=== PATIENT | male | born 1950 | race Caucasian/White ===

== ENCOUNTER 2017-06-15 07:21 | Day surgery (SDC) | payer OTHER, SELFPAY ==
--- NOTE | 2017-06-14 06:06 | EKG12_ITS ---
Test Reason : PREOP Blood Pressure : / mmHG Vent. Rate : 049 BPM Atrial Rate : 049 BPM P-R Int : 170 ms QRS Dur : 104 ms QT Int : 478 ms P-R-T Axes : 044 088 077 degrees QTc Int : 431 ms Marked sinus bradycardia Abnormal ECG Confirmed by ELISABET AMIN MD ([id number]), editorial clerk JOANA MOORE ([id number]) on 06/15/2017 8:27:39 AM Referred By: Torsten Herrera Confirmed By:ELISABET AMIN MD
[2017-06-15 08:06] VITALS: BP 117/75; PULSE 47; RESP 16; TEMP 36.9; O2SAT 100; BMI 20.3
--- NOTE | 2017-06-15 08:32 | PCM.PN.BLA ---
Progress Note I discussed robotic assisted laparoscopic right, possible bilateral, inguinal hernia repair with mesh with the patient. I discussed the procedure both open and laparoscopic and pros and cons of each. I discussed the risks of the procedure including but not limited to bleeding, infection, injury to bowel, bladder, chronic groin pain. The patient wishes to proceed. I agree with Dr Jose's assessment and physical exam. Torsten Herrera MD
[2017-06-15] MEDS: Cefazolin 2 GM in 0.9% Normal Saline 100 ML IV (09:20)
[2017-06-15] MEDS: Bupivacaine Mpf 0.5% 30 ML VIAL (10:16)
[2017-06-15 10:35] VITALS: BP 117/75; BP 139/81; PULSE 68; RESP 14; TEMP 36.6; O2SAT 95
--- NOTE | 2017-06-15 10:36 | PCM.DC.HER ---
Discharge Diet: Light diet - advance as tolerated Discharge Activity: Return to Normal Activity, May Not Drive - for 2-3 days or while taking narcotic pain meds., May Shower - with the bandage in place 1-2 days after surgery. Lifting Restrictions: Additional Activity Instructions:: Climbing stairs is fine, walking is encouraged. Sitting in bed may be uncomfortable. Sitting up using your lateral muscles (sitting up sideways) is usually more comfortable. Do not drive, work heavy equipment of sign legal documents for 24 hours. If your hernia repair was an ingunial repair, you may have scrotal swelling, an ice pack and/or athletic support can provide more comfort. Pain medications may cause nausea, you should typically eat light foods as you take your pain medications. Pain medications may also cause constipation. If you have difficulty with this, discuss with your doctor. Call your doctor if your incision/area has: Continuous Slow Oozing, Sudden Increased Bleeding, Increased Pain/ Swelling, Increased Redness, Foul Smelling Discharge Call your doctor if you observe: Fever of 101 or Higher Suture Line Care: Avoid Pulling/Pushing, Avoid Pinching/Bending Change Dressing in (Days):: 3 - Leave steri-strips for 1 week. May protect with a guaze bandaid. Cleanse incision/area with: Keep Dressing Clean & Dry Allergies/Adverse Reactions: Allergies No Known Allergies Allergy (Verified 06/11/17 08:51) Medications to take at Discharge Multivitamins,Therapeutic [Multivitamin] 1 tablet PO DAILY 09/12/14 Tamsulosin HCl [Flomax] 0.4 mg PO DAILY 09/12/14 cholecalciferol (vitamin D3) 1,000 unit capsule 1,000 unit PO DAILY 05/31/17 finasteride 5 mg tablet 5 mg PO QDAY 05/31/17 Oxycodone HCl/Acetaminophen [Percocet 5/325] 1 - 2 tab PO Q4H PRN PRN 7 Days #30 tab 06/15/17 The following prescriptions were given: Oxycodone HCl/Acetaminophen [Percocet 5/325] 1 - 2 tab PO Q4H PRN PRN 7 Days #30 tab PRN Reason: Pain Primary Care Physician: Evan Carrillo MD [Primary Care Provider] - Please Follow Up With: Torsten Herrera MD
--- NOTE | 2017-06-15 10:40 | DCINST_ITS ---
Discharge Diet: Light diet - advance as tolerated Discharge Activity: Return to Normal Activity, May Not Drive - for 2-3 days or while taking narcotic pain meds., May Shower - with the bandage in place 1-2 days after surgery. Lifting Restrictions: Additional Activity Instructions:: Climbing stairs is fine, walking is encouraged. Sitting in bed may be uncomfortable. Sitting up using your lateral muscles (sitting up sideways) is usually more comfortable. Do not drive, work heavy equipment of sign legal documents for 24 hours. If your hernia repair was an ingunial repair, you may have scrotal swelling, an ice pack and/or athletic support can provide more comfort. Pain medications may cause nausea, you should typically eat light foods as you take your pain medications. Pain medications may also cause constipation. If you have difficulty with this, discuss with your doctor. Call your doctor if your incision/area has: Continuous Slow Oozing, Sudden Increased Bleeding, Increased Pain/ Swelling, Increased Redness, Foul Smelling Discharge Call your doctor if you observe: Fever of 101 or Higher Suture Line Care: Avoid Pulling/Pushing, Avoid Pinching/Bending Change Dressing in (Days):: 3 - Leave steri-strips for 1 week. May protect with a guaze bandaid. Cleanse incision/area with: Keep Dressing Clean & Dry Allergies/Adverse Reactions: Allergies No Known Allergies Allergy (Verified 06/11/17 08:51) Medications to take at Discharge Multivitamins,Therapeutic [Multivitamin] 1 tablet PO DAILY 09/12/14 Tamsulosin HCl [Flomax] 0.4 mg PO DAILY 09/12/14 cholecalciferol (vitamin D3) 1,000 unit capsule 1,000 unit PO DAILY 05/31/17 finasteride 5 mg tablet 5 mg PO QDAY 05/31/17 Oxycodone HCl/Acetaminophen [Percocet 5/325] 1 - 2 tab PO Q4H PRN PRN 7 Days # 30 tab 06/15/17 The following prescriptions were given: Oxycodone HCl/Acetaminophen [Percocet 5/325] 1 - 2 tab PO Q4H PRN PRN 7 Days # 30 tab PRN Reason: Pain Primary Care Physician: Evan Carrillo MD [Primary Care Provider] - Please Follow Up With: Torsten Herrera MD
--- NOTE | 2017-06-15 10:44 | PCM.OPRPT ---
Problem List (1) Right inguinal hernia Status: Chronic Report of Operation Date of Procedure: 06/15/17 Pre-Operative Diagnosis: Right inguinal hernia Post-Operative Diagnosis: Right inguinal hernia Surgery/Procedure Performed:: Robotic assisted laparoscopic right inguinal hernia repair with mesh Specimen's removed: None Description of Procedure: The patient was brought back to the operating room and general anesthesia was induced. A Delaney catheter was placed and clear urine was returned. The abdomen was prepped and draped in usual sterile fashion. Next an incision was made superior to the umbilicus. The fascia was grasped and elevated and a Veress needle was placed into the abdomen. A drop test was performed and was normal. The abdomen was insufflated to 15 mmHg. Next the Veress needle was removed and the camera port was placed into the abdomen. The camera was placed in the abdomen and the abdomen was inspected. There were no injuries upon entering the patient only had a right-sided inguinal hernia. Next an 8 mm port was placed on each side of the abdominal sidewall under direct visualization. The robot was then docked and the patient was placed in steep Trendelenburg position. Next cautery scissors were used to incise the peritoneum and it was reflected back until the hernia sac was reached. The hernia sac was dissected free circumferentially. Once the hernia sac was reflected free and this was reflected back onto the psoas a piece of pro-process control specialist mesh was placed into the abdomen and over the right inguinal region. This was unfolded and self fixated. Next the peritoneum was reapproximated with a running 3-0V lock suture. There was a small hole in the peritoneum which was closed with a [id number] 3-0 Vicryl suture. At the end of the procedure the peritoneum was completely covering the mesh. The instruments were removed and the robot was undocked. The ports were removed under direct visualization. The skin incisions were anesthetized with Marcaine and closed with interrupted 4-0 Monocryl suture, Steri-Strips, and bandages. The patient tolerated the procedure well and the Delaney was removed at the end of the case. The patient tolerated the procedure well. Grafts/Implants Used: Pro-process control specialist mesh - Admit VTE Documentation VTE Mechan Device Prophylaxis: SCD's
[2017-06-15 10:45] VITALS: BP 113/79; BP 117/75; PULSE 53; RESP 16; O2SAT 100
--- NOTE | 2017-06-15 10:49 | OP.PCM_ITS ---
Problem List (1) Right inguinal hernia Status: Chronic Report of Operation Date of Procedure: 06/15/17 Pre-Operative Diagnosis: Right inguinal hernia Post-Operative Diagnosis: Right inguinal hernia Surgery/Procedure Performed:: Robotic assisted laparoscopic right inguinal hernia repair with mesh Specimen's removed: None Description of Procedure: The patient was brought back to the operating room and general anesthesia was induced. A Delaney catheter was placed and clear urine was returned. The abdomen was prepped and draped in usual sterile fashion. Next an incision was made superior to the umbilicus. The fascia was grasped and elevated and a Veress needle was placed into the abdomen. A drop test was performed and was normal. The abdomen was insufflated to 15 mmHg. Next the Veress needle was removed and the camera port was placed into the abdomen. The camera was placed in the abdomen and the abdomen was inspected. There were no injuries upon entering the patient only had a right-sided inguinal hernia. Next an 8 mm port was placed on each side of the abdominal sidewall under direct visualization. The robot was then docked and the patient was placed in steep Trendelenburg position. Next cautery scissors were used to incise the peritoneum and it was reflected back until the hernia sac was reached. The hernia sac was dissected free circumferentially. Once the hernia sac was reflected free and this was reflected back onto the psoas a piece of pro-supervisor pipeline maintenance mesh was placed into the abdomen and over the right inguinal region. This was unfolded and self fixated. Next the peritoneum was reapproximated with a running 3-0V lock suture. There was a small hole in the peritoneum which was closed with a figure -of-eight 3-0 Vicryl suture. At the end of the procedure the peritoneum was completely covering the mesh. The instruments were removed and the robot was undocked. The ports were removed under direct visualization. The skin incisions were anesthetized with Marcaine and closed with interrupted 4-0 Monocryl suture, Steri-Strips, and bandages. The patient tolerated the procedure well and the Delaney was removed at the end of the case. The patient tolerated the procedure well. Grafts/Implants Used: Pro-supervisor pipeline maintenance mesh - Admit VTE Documentation VTE Mechan Device Prophylaxis: SCD's
[2017-06-15 11:00] VITALS: BP 117/75; BP 120/74; PULSE 53; RESP 16; TEMP 36.1; O2SAT 100
[2017-06-15 13:20] VITALS: BP 117/75; BP 120/74; PULSE 53; RESP 18; TEMP 36.3; O2SAT 100
[2017-06-15 13:58] VITALS: BP 117/75
== END 2017-06-15 14:03 | disposition home or self-care (01) ==
LOC: SDC 07:21 → AC 07:24
PROVIDERS: Family Provider Family Medicine; PCP Family Medicine; Visit Provider Surgery
PROC: (CPT 49650; principal; 2017-06-15 08:40)
DX: K40.90 Unilateral inguinal hernia, without obstruction or gangrene, not specified as recurrent (principal); N40.0 Benign prostatic hyperplasia without lower urinary tract symptoms; Z79.899 Other long term (current) drug therapy
CPT/HCPCS: 49650; 93005; J7120; J2405; J3490

== ENCOUNTER → 2018-09-07 | Outpatient (CLI) | payer OTHER, MEDICARE, SELFPAY ==
[2017-06-21 14:19] VITALS: BMI 20.3
[2018-09-07 10:24] LABS: Anion Gap 5 (5-15); BUN 14 mg/dL (7-18); BUN/Creat Ratio 15.4 RATIO (10-20); Calcium,Total 8.4 mg/dL (8.5-10.1); Chloride 106 mmol/L (98-107); Cholesterol 185 mg/dL (200); Creatinine, Serum 0.91 mg/dL (0.70-1.30); EST Glomerular Filtration Rate 89 mL/min (>60); Est Glom Filt Rate - Afr Amer 107 mL/min (>60); Glucose 82 mg/dL (74-106); High Density Lipoprotein 81 mg/dL; PSA,Total - Annual Screen 0.47 ng/mL (0.00-4.00); Potassium 3.9 mmol/L (3.5-5.1); Sodium Level 142 mmol/L (136-145); Triglycerides 56 mg/dL; Very Low Density Lipoprotein 11 mg/dL (5-40)
== END | disposition home or self-care (01) ==
PROVIDERS: Family Provider Family Medicine; PCP Family Medicine; Referring Provider Family Medicine; Visit Provider Family Medicine
DX: N40.0 Benign prostatic hyperplasia without lower urinary tract symptoms (principal); Z13.220 Encounter for screening for lipoid disorders; Z12.5 Encounter for screening for malignant neoplasm of prostate
CPT/HCPCS: 36415; 80048; 80061; 84153; G0103

== ENCOUNTER → 2019-05-08 09:46 | Outpatient (CLI) | payer MEDICARE, SELFPAY ==
[2017-06-21 14:19] VITALS: BMI 20.3
--- NOTE | 2019-05-08 09:50 | RAD_ITS ---
Procedure: Fluoroscopically guided, dedicated esophagram with frontal and lateral cine views of the pharynx/larynx. INDICATIONS: Solid foods get stuck in the throat and has to cough to get them out for about 6 months. No history of carcinoma. TECHNIQUE: The patient easily and readily swallowed effervescent crystals, a 12 mm barium pill and various density barium contrast under fluoroscopic real-time evaluation. Multiple spot images were obtained during the course of the real-time exam. FINDINGS: The esophageal motility appears normal. There is no esophageal stricture, web or diverticulum. There is no intrinsic or extrinsic esophageal mass or mass effect. The mucosal pattern appears unremarkable. There is a tiny hiatal hernia. No free reflux was observed during the course of the real-time exam. The barium pill transited the esophagus rapidly without delay or hang up. There is symmetric flow of the contrast bolus through the larynx/hypopharynx region. There is vallecula and bilateral piriform sinus contrast pooling with rapid clearing. There is no vestibular penetration or elisa aspiration. There is a small posterior indentation on the posterior cervical esophagus at the C6-C7 level due to osteophyte formation. No intrinsic esophageal mass or mass effect. RAD/Esophagus Only IMPRESSION: Small hiatal hernia. No free reflux. Unremarkable transit/passage of the barium pill. Vallecula and bilateral piriform sinus contrast pooling with rapid clearing. No vestibular penetration or elisa aspiration. Minimal extrinsic mass effect on the posterior esophagus at the C6-C7 level due to vertebral body osteophyte formation. Otherwise, no fluoroscopically evident pathology. Fluoroscopy time less than 1 minute. Electronically Signed: Rahat Greenberg MD at 11:02 EST , Service support ,
== END ==
PROVIDERS: Family Provider Family Medicine; PCP Family Medicine; Referring Provider Family Medicine; Visit Provider Family Medicine
DX: R13.10 Dysphagia, unspecified (principal)
CPT/HCPCS: 74220

== ENCOUNTER → 2019-08-07 12:50 | Outpatient (CLI) | payer MEDICARE, SELFPAY ==
[2017-06-21 14:19] VITALS: BMI 20.3
--- NOTE | 2019-08-07 13:00 | SP.MBSS_ITS ---
PRIMARY / SECONDARY DIAGNOSIS: dysphagia (R13.10) REFERRING PHYSICIAN: Dr. Evan Hitchcock MD CURRENT DIET: regular textures, thin liquids DENTITION: WFL MENTAL STATUS: WNL RESPIRATORY STATUS: O2 via room air REASON FOR REFERRAL: The Patient is a 69 year old male referred for a modified barium swallow (MBS) study to objectively assess the Patients oropharyngeal swallow function under fluoroscopy secondary to reported intermittent globus sensation / feelings of bolus dysmotility with occasional though seldom retrograde flow to the oral cavity without acidic qualities. MEDICAL HISTORY: Right inguinal hernia status post laproscopic robotic assisted right inguinal hernia repair with mesh, childhood asthma, benign prostatic hyperplasia, PREVIOUS MODIFIED BARIUM SWALLOW STUDY: None ADDITIONAL OBJECTIVE ASSESSMENT RESULTS: 05/08/2019 barium swallow study revealed a small hiatal hernia; no free reflux; unremarkable transit / passage of the barium pill; vallecula and bilateral piriform sinus contrast pooling with rapid clearing; no vestibular penetration or elisa aspiration; minimal extrinsic mass effect on the posterior esophagus at the C6-C7 level due to vertebral body osteophyte formation; otherwise, no fluoroscopically evident pathology. ASSESSMENT PARAMETERS: The Patient participated in a Modified Barium Swallow (MBS) study on 08/07/2019. This study was recorded in the lateral view and images were sent to PACs for storage. Scoring was completed through each trial using the 8- point Penetration-Aspiration Scale (PAS), and summarized via the Modified Barium Swallow Impairment Profile (MBSImP) and the Bolus Residue Scale (BRS), with severity scoring through the Dysphagia Severity Rating Scale (DSRS) and the Swallowing Performance Scale (SPS), and recommended diet textures through the International Dysphagia Diet Standardisation Initiative (IDDSI) RESULTS OF THE EVALUATION: The Patient presents with mastication and deglutition abilities found to be grossly within functional limits (DSRS: 1; SPS: 2) OBJECTIVE ASSESSMENT OF SWALLOW FUNCTION (QUANTITATIVE ? PER TRIAL): PENETRATION / ASPIRATION SCALE (BARNES): 1 = does not enter airway 2 = enters airway/above vocal folds/ejected 3 = enters airway/above vocal folds/not ejected 4 = enters airway/contacts vocal folds/ejected 5 = enters airway/contacts vocal folds/not ejected 6 = enters airway/below vocal folds/ejected 7 = enters airway/below vocal folds/not ejected despite effort 8 = enters airway/below vocal folds/no effort PENETRATION / ASPIRATION SCALE (SCORE): Thin liquid - 5 mL tsp.: 1 Thin liquids via cup (single sip): 1 Thin liquids via cup (single sip): 1 Thin liquids via cup (single sip): 1 Thin liquids via cup (sequential swallows): 1 Thin liquids via straw (single sip): 1 Pudding via spoon: 1 Regular textured cookie: 1 Thin liquids via straw (single sip): 1 Thin liquids via straw (single sip): 1 Thin liquids via straw (sequential swallows): 1 OBJECTIVE ASSESSMENT OF SWALLOW FUNCTION (QUANTITATIVE ? AGGREGATE): MODIFIED BARIUM SWALLOW IMPAIRMENT PROFILE (MBSImP) LABIAL SEAL: 0 (of 4) no labial escape TONGUE CONTROL: 0 (of 3) cohesive bolus BOLUS PREPARATION / MASTICATION: 0 (of 3) timely and efficient BOLUS TRANSPORT / LINGUAL MOTION: 0 (of 4) brisk tongue motion ORAL RESIDUE: 1 (of 4) trace residue lining oral structures INITIATION OF PHARYNGEAL SWALLOW: 3 (of 4) pyriforms SOFT PALATE ELEVATION: 0 (of 4) no bolus between soft palate & pharyngeal wall LARYNGEAL ELEVATION: 0 (of 3) complete superior movement / approximation ANTERIOR HYOID EXCURSION: 1 (of 2) partial movement EPIGLOTTIC MOVEMENT: 1 (of 2) partial inversion LARYNGEAL VESTIBULE CLOSURE: 0 (of 2) complete closure PHARYNGEAL STRIPPING WAVE: 1 (of 2) present / diminished PE SEGMENT OPENIN (of 3) partial distension / duration / obstruction TONGUE BASE RETRACTION: 1 (of 4) trace column of contrast PHARYNGEAL RESIDUE: 2 (of 4) collection of residue ESOPHAGEAL BOLUS CLEARANCE: 0 (of 4) complete clearance; esophageal coating BOLUS RESIDUE SCALE (BRS): 4 (of 6) residue in valleculae and posterior pharyngeal wall OBJECTIVE ASSESSMENT OF SWALLOW FUNCTION (SEVERITY GRADING): DYSPHAGIA SEVERITY RATING SCALE (DSRS): 1 (within functional limits) SWALLOWING PERFORMANCE SCALE (SPS): 2 (within functional limits) OBJECTIVE ASSESSMENT OF SWALLOW FUNCTION (QUALITATIVE): ORAL PREPARATORY PHASE: sufficient mastication rate and quality; sufficient anterior oral containment during oral manipulation; preserved management of breathing / bolus formation ORAL TRANSITIONAL PHASE: sufficient bolus transportation; no lingual discoordination (no tremor / undulations); no bolus consolidation impairments; sufficient oral containment across textures with no presence of premature posterior bolus loss PHARYNGEAL PHASE: suboptimal pharyngeal phase synchrony with the bolus head within the pyriforms during ingestion of thin liquids, though no apparent functional impacts are appriciated; sufficient hyolaryngeal excursion and laryngeal vestibule valving; mild pharyngeal dysmotility attributed to mild reductions in epiglottic deflection and posterior pharyngeal stripping wave action, though again little to no functional impact is noted; no signs of velopharyngeal impairments ESOPHAGEAL PHASE: slight reduction in pharyngoesophageal segment dilatation due to the previously mentioned minimal extrinsic mass effect on the posterior esophagus at the C6-C7 level due to vertebral body osteophyte formation without functional impact; no obvious esophageal phase functional abnormalities observed. CONTRIBUTING / COMPLICATING FACTORS AND NOTABLE FINDINGS: minimal extrinsic mass effect on the posterior esophagus at the C6-C7 level due to vertebral body osteophyte formation as previously mentioned RECOMMENDATIONS FOR INTERVENTION: No further skilled speech-language services warranted at this time targeting dysphagia. POST ASSESSMENT EDUCATION: The results and recommendations were discussed with the Patient immediately following MBS completion, with the Patient verbalizing understanding and agreement with all recommendations and education provided. I provided brief overview of signs and symptoms of aspiration, with recommendations for the Patient to further discuss symptoms with the Patients primary care provider. DIET TEXTURE RECOMMENDATIONS: Will recommend a regular textured (IDDSI: 7), thin liquid diet (IDDSI: 0) diet RECOMMENDED COMPENSATORY STRATEGIES: Consider cutting tougher textures into bite sized pieces, reduced bolus volume / rate of ingestion, seated upright at 90 degrees during PO intake, remain upright for 30-60 minutes post meal (GERD precaution), medications one at a time with a liquid chaser. IMAGE COUNT: [id number] Skyler Ramirez M.A., ANABEL-UNIFIED COMMUNICATIONS ENGINEER, CBIS MBSImP Certified, LSVT Certified [facility] Speech-Language Pathology Department [email or web address]
== END ==
PROVIDERS: PCP Family Medicine; Referring Provider Family Medicine; Visit Provider Family Medicine
DX: R13.10 Dysphagia, unspecified (principal)
CPT/HCPCS: 74230; 92611

== ENCOUNTER → 2019-11-01 | Outpatient (CLI) | payer MEDICARE, SELFPAY ==
[2017-06-21 14:19] VITALS: BMI 20.3
[2019-11-01 13:03] LABS: PSA,Total - Annual Screen 0.47 ng/mL (0.00-4.00)
== END | disposition home or self-care (01) ==
PROVIDERS: PCP Family Medicine; Referring Provider Family Medicine; Visit Provider Family Medicine
DX: Z12.5 Encounter for screening for malignant neoplasm of prostate (principal)
CPT/HCPCS: 36415; 84153; G0103

== ENCOUNTER 2020-07-16 15:41 | Outpatient (RCR) | payer MEDICARE, SELFPAY ==
[2017-06-21 14:19] VITALS: BMI 20.3
[2020-07-16] MEDS: COVID-19 VACC, MRNA(PFIZER)/PF 30 MCG/0.3 ML SYRINGE IM (09:35)
[2020-08-06] MEDS: COVID-19 VACC, MRNA(PFIZER)/PF 30 MCG/0.3 ML SYRINGE IM (09:16)
== END 2020-10-15 23:59 ==
LOC: IMMUN 15:41
PROVIDERS: PCP Family Medicine; Visit Provider Family Medicine
DX: Z23 Encounter for immunization (principal)
CPT/HCPCS: 0001A; 0002A; 91300

== ENCOUNTER → 2020-11-06 09:38 | Outpatient (CLI) | payer MEDICARE, SELFPAY ==
[2017-06-21 14:19] VITALS: BMI 20.3
[2020-11-06 12:12] LABS: Absolute Lymphocyte Count 1.06 X10^3/uL (0.83-4.51); Absolute Neutrophil Count 2.1 X10^3/uL (2.0-7.7); Eosinophil# 0.07 X10^3/uL; Eosinophils% 1.9 % (0-5); Hematocrit 44.9 % (40-54); Hemoglobin 14.5 g/dL (13.0-16.5); Lymphocyte # 1.06 X10^3/ul (0.83-4.51); Lymphocyte % 29.5 % (19-41); Mean Corp Hgb Conc 32.3 g/dL (32-36); Mean Corpuscular Hgb 28.7 pg (27.0-32.0); Mean Corpuscular Volume 88.9 fL (80-94); Mean Platelet Vol. 10.9 fl (6.2-12.0); Monocyte# 0.33 X10^3/uL; Monocyte% 9.2 % (0-10); NRBC Flagged by Analyzer 0 % (0-5); Neutrophil # 2.12 X10^3/uL (2.7-7.7); Neutrophil % 59.1 % (47-70); Platelet Count 235 K/mm3 (150-450); RBC Distribution Width SD 42.3 fl (35.1-43.9); Red Blood Count 5.05 M/mm3 (4.6-6.2); White Blood Count 3.6 K/mm3 (4.4-11.0)
[2020-11-06 12:39] LABS: ALB/GLOB Ratio 1.3 RATIO (0.9-2.4); AST(SGOT) 18 U/L (15-37); Alanine Aminotransfer ALT/SGPT 21 U/L (16-61); Albumin, Serum 3.9 g/dL (3.2-5.0); Alkaline Phosphatase 94 U/L (45-117); Anion Gap 5 (5-15); BUN 21 mg/dL (7-18); BUN/Creat Ratio 19.8 RATIO (10-20); Calcium,Total 8.8 mg/dL (8.5-10.1); Chloride 105 mmol/L (98-107); Creatinine, Serum 1.06 mg/dL (0.70-1.30); EST Glomerular Filtration Rate 74 mL/min (>60); Est Glom Filt Rate - Afr Amer 89 mL/min (>60); Glucose 102 mg/dL (74-106); PSA,Total - Annual Screen 0.68 ng/mL (0.00-4.00); Potassium 4.2 mmol/L (3.5-5.1); Protein, Total 6.9 g/dL (6.4-8.2); Sodium Level 139 mmol/L (136-145)
[2020-11-06 12:50] LABS: Vitamin D,25 Hydroxy 73.1 ng/mL
== END ==
PROVIDERS: PCP Family Medicine; Visit Provider Family Medicine
DX: E55.9 Vitamin D deficiency, unspecified (principal); Z12.5 Encounter for screening for malignant neoplasm of prostate
CPT/HCPCS: 36415; 80053; 82306; 84153; 85025; G0103

== ENCOUNTER → 2020-11-12 09:41 | Outpatient (CLI) | payer MEDICARE, SELFPAY ==
[2017-06-21 14:19] VITALS: BMI 20.3
[2020-11-12 12:23] LABS: AST(SGOT) 20 U/L (15-37); Alanine Aminotransfer ALT/SGPT 19 U/L (16-61); Albumin, Serum 3.6 g/dL (3.2-5.0); Alkaline Phosphatase 84 U/L (45-117); Bilirubin, Direct 0.45 mg/dL (0.00-0.30); Globulin 2.8 g/dL (2.2-4.2); Protein, Total 6.4 g/dL (6.4-8.2)
== END ==
PROVIDERS: PCP Family Medicine; Visit Provider Family Medicine
DX: R17 Unspecified jaundice (principal)
CPT/HCPCS: 36415; 80076

== ENCOUNTER → 2020-11-27 07:10 | Outpatient (CLI) | payer MEDICARE, SELFPAY ==
[2017-06-21 14:19] VITALS: BMI 20.3
--- NOTE | 2020-11-27 07:12 | CT_ITS ---
STUDY: CT ABDOMEN AND PELVIS WITH CONTRAST REASON FOR EXAM: Male, 70 years old. PAINLESS JAUNDICE RADIATION DOSAGE (If Supplied By Facility): CTDIvol = ( 9.36 ) mGy, DLP = ( 433.36 ) mGycm TECHNIQUE: Transaxial images were obtained from the dome of the diaphragm to the symphysis pubis without oral contrast. IV 100mL Isovue-370 was administered. Sagittal and coronal images were reconstructed. Individualized dose optimization techniques were used for this CT. COMPARISON: None. FINDINGS: The visualized lung bases are unremarkable. The visualized portions of the heart are within normal limits. Multiple tiny cysts are seen scattered throughout the liver. The largest cyst measures 2.4 cm x 1.3 cm. This is in the posterior aspect of the right lobe of the liver. Normal gallbladder and extrahepatic biliary system. Normal spleen. Normal pancreas. Normal bilateral adrenal glands. Normal right kidney. Normal left kidney. Normal visualized stomach. Normal small intestine. Normal colon. The appendix is visualized and appears normal. There is scattered atherosclerotic calcification of the abdominal aorta, without a demonstrated aneurysm. Mildly distended inferior vena cava and the iliac veins bilaterally. Normal retroperitoneum. Normal urinary bladder. Normal abdominal wall. There are mild degenerative changes of the visualized lumbar spine. CT/Abdomen/Pelvis WITH Contrast IMPRESSION: Mildly distended inferior vena cava and the bilateral iliac veins. Hepatic cysts. Electronically Signed: Ck Kaiser MD at 10:02 EDT , Service support ,
== END ==
PROVIDERS: PCP Family Medicine; Referring Provider Family Medicine; Visit Provider Family Medicine
DX: R17 Unspecified jaundice (principal)
CPT/HCPCS: 74177; Q9967

== ENCOUNTER 2021-11-19 08:38 | Emergency (ER) | payer MEDICARE, SELFPAY ==
[2021-11-19 08:38] VITALS: BP 126/76; PULSE 62; RESP 16; TEMP 36.3; O2SAT 100; BMI 20.2
[2021-11-19 08:44] VITALS: O2SAT 98
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
== END 2021-11-19 09:31 | disposition home or self-care (01) ==
PROVIDERS: Emergency Provider Emergency Medicine; PCP Family Medicine; Visit Provider Emergency Medicine
DX: S70.01XA Contusion of right hip, initial encounter (principal); V13.4XXA Pedal cycle driver injured in collision with car, pick-up truck or van in traffic accident, initial encounter; Y93.55 Activity, bike riding
CPT/HCPCS: 74176; 99282

== ENCOUNTER → 2022-01-08 | Outpatient (CLI) | payer MEDICARE, SELFPAY | END | disposition home or self-care (01) | PROVIDERS: PCP Family Medicine; Visit Provider Family Medicine | DX: U07.1 COVID-19 (principal) | CPT/HCPCS: 87635; U0003; U0005 ==

== ENCOUNTER → 2022-10-27 | Outpatient (CLI) | payer MEDICARE, SELFPAY ==
[2022-10-27 14:57] LABS: Vitamin D,25 Hydroxy 95.3 ng/mL
[2022-10-27 15:01] LABS: ALB/GLOB Ratio 1.1 RATIO (0.9-2.4); AST(SGOT) 18 U/L (15-37); Alanine Aminotransfer ALT/SGPT 19 U/L (16-61); Albumin, Serum 3.5 g/dL (3.2-5.0); Alkaline Phosphatase 104 U/L (45-117); Anion Gap 4 (5-15); BUN 18 mg/dL (7-18); BUN/Creat Ratio 18.9 RATIO (10-20); Bilirubin, Direct 0.25 mg/dL (0.00-0.30); Calcium,Total 8.8 mg/dL (8.5-10.1); Chloride 105 mmol/L (98-107); Creatinine, Serum 0.95 mg/dL (0.70-1.30); EST Glomerular Filtration Rate 83 mL/min (>60); Est Glom Filt Rate - Afr Amer 101 mL/min (>60); Globulin 3.3 g/dL (2.2-4.2); Glucose 95 mg/dL (74-106); Protein, Total 6.8 g/dL (6.4-8.2); Sodium Level 139 mmol/L (136-145)
== END | disposition home or self-care (01) ==
PROVIDERS: PCP Family Medicine; Visit Provider Family Medicine
DX: E55.9 Vitamin D deficiency, unspecified (principal); Z12.5 Encounter for screening for malignant neoplasm of prostate
CPT/HCPCS: 36415; 80053; 82248; 82306; 84153; G0103

== ENCOUNTER → 2023-11-24 | Outpatient (CLI) | payer MEDICARE, SELFPAY ==
[2023-11-24 15:15] LABS: AST(SGOT) 17 U/L (15-37); Alanine Aminotransfer ALT/SGPT 20 U/L (16-61); Albumin, Serum 3.5 g/dL (3.2-5.0); Alkaline Phosphatase 78 U/L (45-117); Anion Gap 8 (5-15); BUN 22 mg/dL (7-18); BUN/Creat Ratio 19.1 RATIO (10-20); Bilirubin, Direct 0.35 mg/dL (0.00-0.30); Calcium,Total 8.8 mg/dL (8.5-10.1); Chloride 105 mmol/L (98-107); Creatinine, Serum 1.15 mg/dL (0.70-1.30); EST Glomerular Filtration Rate 67 mL/min (>60); Est Glom Filt Rate - Afr Amer 81 mL/min (>60); Globulin 3.2 g/dL (2.2-4.2); Glucose 108 mg/dL (74-106); PSA,Total - Annual Screen 0.55 ng/mL (0.00-4.00); Potassium 3.7 mmol/L (3.5-5.1); Protein, Total 6.7 g/dL (6.4-8.2); Sodium Level 141 mmol/L (136-145)
== END | disposition home or self-care (01) ==
LOC: MTLAB 13:33
PROVIDERS: PCP Family Medicine; Referring Provider Family Medicine; Visit Provider Family Medicine
DX: N40.1 Benign prostatic hyperplasia with lower urinary tract symptoms (principal); E55.9 Vitamin D deficiency, unspecified; R17 Unspecified jaundice
CPT/HCPCS: 36415; 80048; 80076; 82306; 84153; G0103

== ENCOUNTER → 2023-11-29 | Outpatient (CLI) | payer MEDICARE, SELFPAY ==
--- NOTE | 2023-11-29 11:23 | US_ITS ---
INDICATION: Benign prostatic hypertrophy with luts EXAMINATION: Ultrasound US Post Void Residual Urine/Bladder TECHNIQUE: Guthire scale and color doppler imaging was performed of the urinary bladder. COMPARISON: CT dated November 19, 2021 FINDINGS: The urinary bladder is incompletely distended. No stones, masses, or wall thickening. Bilateral ureteral jets are visualized. Pre-void volume is 40.1 mL. Post-void volume is 23.89 mL. The prostate gland measures 3.8 x 3.0 x 3.9 cm corresponding to a volume of 23.0 mL. US/Post Void Residual Bladder IMPRESSION: Incompletely distended urinary bladder with no gross stones, masses or wall thickening. Electronically Signed: Carmela Freeman MD at 9:28 EDT ,
== END | disposition home or self-care (01) ==
LOC: US 11:19
PROVIDERS: PCP Family Medicine; Referring Provider Family Medicine; Visit Provider Family Medicine
DX: N40.1 Benign prostatic hyperplasia with lower urinary tract symptoms (principal)
CPT/HCPCS: 51798

== ENCOUNTER 2024-01-24 10:06 | Emergency (ER) | payer MEDICARE, SELFPAY ==
[2024-01-24 10:07] VITALS: BP 131/79; PULSE 49; RESP 16; TEMP 36.4; O2SAT 100; BMI 20.6
--- NOTE | 2024-01-24 10:35 | RAD_ITS ---
INDICATION: PAIN, SCIATICA EXAMINATION/TECHNIQUE: X-RAY - XR Spine Lumbar 2 or 3 Views COMPARISON: CT of the abdomen and pelvis dated November 19, 2021 FINDINGS: VERTEBRAE: There is a mild dextroscoliosis. There is an anterior compression deformity of L1. No fracture. There is multilevel endplate spondylosis and facet hypertrophy. Preservation of the normal lumbar lordosis. DISCS: There is multilevel degenerative disc disease. INCLUDED ABDOMEN: Included bowel gas pattern is non-obstructive. There are vascular calcifications. RAD/Lumbar Spine 2 or 3 Views IMPRESSION: Multilevel degenerative changes. L1 anterior compression deformity, likely chronic. Electronically Signed: Carmela Freeman MD at 10:58 EDT ,
--- NOTE | 2024-01-24 10:37 | ED.VIS.BACK ---
HPI History of Present Illness Chief Complaint: Lower Extremity Injury Informant: patient and spouse/S.O. Narrative Narrative: 73-year-old male started having sciatica symptoms spontaneously about a week ago, with symptoms in his right buttock radiating down his right posterior thigh with numbness in his right foot. Saw his PCP, was put on meloxicam and prednisone, it did not help anything and now he is nauseated and vomiting with the pills and not able to take them anymore. Symptoms have not progressed. Denies any saddle anesthesia or bowel or bladder dysfunction or weakness in the leg. He is a runner, but denies any acute injury associated with the onset of the symptoms. Sitting is much worse, standing is usually better for the pain. [facility] Medical History (Updated 01/24/24 @ 10:[address] Rajinder Black MD) Right inguinal hernia BPH (benign prostatic hyperplasia) Home Medications ?Medication ?Instructions ?Recorded ?Last Taken ?Type multivitamin with folic acid 400 1 tab PO DAILY 09/12/14 Unknown History mcg tablet tamsulosin 0.4 mg capsule 0.4 mg PO DAILY URINE FLOW 09/12/14 Unknown History finasteride 5 mg tablet 5 mg PO QDAY 05/31/17 Unknown History meloxicam 15 mg tablet 15 mg PO DAILY 01/24/24 Unknown History ondansetron 8 mg disintegrating 8 mg PO Q8H PRN nausea and 01/24/24 Unknown Rx tablet vomiting #20 tabs oxycodone-acetaminophen 5 mg-325 1 tab PO Q6H PRN PRN Pain 3 days 01/24/24 Unknown Rx mg tablet #12 TABLETS prednisone 20 mg tablet 40 mg PO DAILY 01/24/24 Unknown History Allergy/AdvReac Type Severity Reaction Status Date / Time No Known Allergies Allergy Verified 01/24/24 10:06 Family History Mother Cancer lymphoma Father Heart disease Social History Smoking Status: Never smoker alcohol intake: current alcohol intake frequency: holidays/special occasions only ROS ROS ED Constitutional Constitutional ED: Denies chills or fever(s) Gastrointestinal Gastrointestinal: Denies abdominal pain, constipation, fecal incontinence, nausea or vomiting Genitourinary Genitourinary ED: Reports other Details: no urinary retention ; Denies abdominal discomfort or urinary incontinence Musculoskeletal Musculoskeletal: Reports as per HPI and back pain; Denies neck pain Integumentary Denies rash or wounds Neurologic Neurologic: Reports paresthesias RLE (foot); Denies headache(s) or weakness EXAM Physical Exam Const Vital Signs: 01/24/24 10:07 Temperature 97.6 F L Temperature Source Temporal Pulse Rate 49 L Respiratory Rate 16 Blood Pressure 131/79 H Blood Pressure Mean 96 Pulse Ox 100 Oxygen Delivery Method Room Air Positive well nourished and well developed General Appearance ED: well developed and NAD HEENT Negative for trauma or tenderness Eyes PERRL and EOMs intact bilaterally Neck full ROM and supple GI normal to inspection, nondistended, normoactive bowel sounds, soft to palpation and non-tender Back/Spine normal to inspection Back/Spine Narrative: Ipsilateral straight leg raise while sitting is positive worsening the numbness in his right foot, cross straight leg raise is negative. Reflexes are all symmetric. Lumbar Spine / Lower Back: ROM limited and paraspinal muscle tenderness; Negative for lumbar spinal tenderness Extremity normal to inspection, full ROM and no pedal edema Neuro oriented x3 Neuro Narrative: Subjective decreased sensation left foot only, including the plantar aspect. No weakness. Able to walk without difficulty. Sensorium / Orientation: alert Motor Exam: strength 5/5 throughout and clonus absent Deep Tendon Reflexes: Rt Patellar (L4): 2+, Lt Patellar (L4): 2+, Rt Ankle (S1): 2+ and Lt Ankle (S1): 2+ Deep Tendon Reflexes Back: Rt Patellar (L4): 2+, Lt Patellar (L4): 2+, Rt Ankle (S1): 2+ and Lt Ankle (S1): 2+ Plantar Reflex: Downgoing: bilateral Psych mental status grossly normal and thought process normal Skin no rashes or lesions noted and no wounds MDM MDM MDM Narrative Medical decision making narrative: Given his age and repetitive axial loading of his lumbar spine while running, I obtained x-rays of the lumbosacral spine. 3 views of my interpretation shows no acute fractures. Radiology noted there is probably an old L1 compression fracture. This is not in the area of the nerve that may be affected here causing him foot numbness. Will prescribe him oxycodone, as well as some Zofran to see if that helps him finish the course of medications he was already prescribed, and I recommend following up with his doctor he hypoxemia does not have acute cauda equina syndrome at this time and does not have an indication for an emergent MRI at this time. Radiography Diagnostic Testing: Clinical Impression(s) from Imaging Studies Lumbar Spine X-Ray 01/24/24 10:35 IMPRESSION: Multilevel degenerative changes. L1 anterior compression deformity, likely chronic. Electronically Signed: Carmela Freeman MD at 10:58 EDT , Discharge Plan Triage Chief Complaint: Lower Extremity Injury ED Provider: Rajinder Black Dx/Rx/DC Orders Clinical Impression: Acute right-sided low back pain with sciatica Instructions: ED Sciatica Prescriptions: New ondansetron 8 mg tablet,disintegrating 8 mg PO Q8H PRN (Reason: nausea and vomiting) Qty: 20 0RF oxycodone-acetaminophen 5-325 mg tablet 1 tab PO Q6H PRN PRN (Reason: Pain) 3 Days Qty: 12 0RF No Action finasteride 5 mg tablet 5 mg PO QDAY meloxicam 15 mg tablet 15 mg PO DAILY prednisone 20 mg tablet 40 mg PO DAILY tamsulosin 0.4 MG capsule 0.4 mg PO DAILY multivitamin with folic acid 1 TABLET tablet 1 tab PO DAILY Primary Care Provider: Evan Douglas Referrals: Evan Douglas MD [Primary Care Provider] - 1 Week if not improving Activity Restrictions/Additional Instructions: Okay to try taking half of one of the prescription pills as needed for severe pain, you may take up to 2 at a time, they will does not last as long. Okay to also take that along with the other prescriptions, but if you are adding acetaminophen to it, make sure you are not taking more than 4000 mg in a 24-hour period of time. Print Language: Telugu Disposition Disposition: Home, Self Care
[2024-01-24 12:06] VITALS: BP 127/78; PULSE 64; RESP 18; TEMP 36.4; O2SAT 99
== END 2024-01-24 12:13 | disposition home or self-care (01) ==
PROVIDERS: Emergency Provider Emergency Medicine; PCP Family Medicine; Visit Provider Emergency Medicine
DX: M54.41 Lumbago with sciatica, right side (principal); N40.0 Benign prostatic hyperplasia without lower urinary tract symptoms; Z79.899 Other long term (current) drug therapy
CPT/HCPCS: 72100; 99282

== ENCOUNTER 2024-03-12 14:41 | Emergency (ER) | payer MEDICARE, SELFPAY ==
[2024-03-12 14:42] VITALS: BP 142/76; PULSE 74; RESP 18; TEMP 36.6; O2SAT 99; BMI 21.4
--- NOTE | 2024-03-12 15:01 | EDS_ITS ---
HPI History of Present Illness Chief Complaint: Other, Pain/Inj Detail of Chief Complaint: Right. Periauricular pain Informant: patient Onset/Context/Timing Onset: Weeks Context: Gradual Onset Timing: Continuous Quality: Thumping sensation Location: Right periauricular Current Severity: Moderate Maximum Severity: Severe Worsened by: Chewing Relieved by: Nothing Associated Symptoms Associated Symptoms: Known Narrative Narrative: Patient is a 73-year-old male. He saw his dentist approximately 3 to 4 weeks ago. It was determined that his pain was due to an impacted wisdom tooth, tooth #32. Patient was placed on antibiotics. He reported essentially little to no improvement. He had an appointment with the local oral surgeon. Patient infor med me as did his that the oral surgeon was reluctant to do anything because of his age, and if there are any complications he does not have an affiliation with a hospital. He has an appointment to be seen by an oral surgeon in [place] March 23. Patient states last evening pain was worse. He took an oxycodone. After several hours the pain returned and he believes it is worse. He took another oxycodone this morning. He denies fever, chills night sweats denies irving ears decreased hearing. He denies history medic fever, heart murmur, mitral prolapse. Prior similar symptoms: Yes Recent Illness/Hospitalization: No PFSH PFSH Medical History Compression of sciatic nerve Right inguinal hernia BPH (benign prostatic hyperplasia) Home Medications ?Medication ?Instructions ?Recorded ?Last Taken ?Type multivitamin with folic acid 400 1 tab PO DAILY 09/12/14 Unknown History mcg tablet tamsulosin 0.4 mg capsule 0.4 mg PO DAILY URINE FLOW 09/12/14 Unknown History finasteride 5 mg tablet 5 mg PO QDAY 05/31/17 Unknown History meloxicam 15 mg tablet 15 mg PO DAILY 01/24/24 Unknown History ondansetron 8 mg disintegrating 8 mg PO Q8H PRN nausea and 01/24/24 Unknown Rx tablet vomiting #20 tabs oxycodone-acetaminophen 5 mg-325 1 tab PO Q6H PRN PRN Pain 3 days 01/24/24 Unknown Rx mg tablet #12 TABLETS prednisone 20 mg tablet 40 mg PO DAILY 01/24/24 Unknown History gabapentin 300 mg capsule 300 mg PO UD #90 caps 03/12/24 Unknown Rx oxycodone-acetaminophen 5 mg-325 1 tab PO Q8H PRN pain 3 days #10 03/12/24 Unknown Rx mg tablet (Percocet) tabs Allergy/AdvReac Type Severity Reaction Status Date / Time No Known Allergies Allergy Verified 03/12/24 14:44 Family History Mother Cancer lymphoma Father Heart disease Social History Smoking Status: Never smoker alcohol intake: current alcohol intake frequency: holidays/special occasions only ROS ROS ED Constitutional Constitutional ED: Denies chills, fever(s), subjective or sweats Eyes Eyes: Denies blurry vision, change in vision or diplopia ENT ENT ED: Reports ear pain right; Denies rhinorrhea or sore throat Gastrointestinal Gastrointestinal: Denies nausea or vomiting Integumentary Denies rash Neurologic Neurologic: Denies headache(s) Hematologic/Lymphatic Hematologic/Lymphatic: Denies easy bleeding or easy bruising EXAM Physical Exam Const Vital Signs: 03/12/24 14:42 03/12/24 14:50 Temperature 97.8 F Temperature Source Oral Pulse Rate 74 Respiratory Rate 18 Respiratory Effort Normal Respiratory Pattern Normal Blood Pressure 142/76 H Blood Pressure Mean 98 Pulse Ox 99 Oxygen Delivery Method Room Air Positive well nourished and well developed General Appearance ED: well developed; Negative for cyanotic, diaphoretic or pallor HEENT Reports TM's clear and moist mucous membranes HEENT Narrative: There is amount of cerumen in the right and left auditory canal. There is minimal discomfort over the right TMJ with opening closing of his mouth. There was no click appreciated. There is no facial swelling. There is no pain ovation over the angle of the mandible. There is no submandibular lymphadenopathy. There is no trismus. Tympanic Membrane ED: Yes TM's clear Eyes PERRL and EOMs intact bilaterally General Eye ED: Negative for scleral icterus Neck no lymphadenopathy, supple and no JVD Resp normal respiratory effort Cardio regular rate and regular rhythm Neuro oriented x3 and CN's II-XII intact bilaterally Sensorium / Orientation: alert Psych mental status grossly normal Skin no rashes or lesions noted and no wounds General Skin Exam: Negative for jaundice or pallor MDM MDM MDM Narrative Medical decision making narrative: Patient with pain due to impacted wisdom tooth, tooth #32. Suspect this is due to inflammation of the inferior alveolar nerve. Will prescribe short course of open analgesia and gabapentin. He was instructed to contact the oral surgeons to determine if he could get moved up. Since patient's had imaging there is no indication for repeat imaging. Since antibiotics were of no benefit and there is no evidence of infection antibiotics were not prescribed. Discharge Plan Triage Chief Complaint: Other, Pain/Inj ED Provider: Vikram Serra Dx/Rx/DC Orders Clinical Impression: Impacted third molar tooth, Acute facial pain Instructions: Understanding the Pain Response, Understanding Impacted [place] Teeth Prescriptions: New oxycodone-acetaminophen [Percocet] 5-325 mg tablet 1 tab PO Q8H PRN (Reason: pain) 3 Days Qty: 10 0RF gabapentin 300 mg capsule 300 mg PO UD Qty: 90 0RF Rx Instructions: 1 twice a day for 2 days then 1 3 times a day No Action finasteride 5 mg tablet 5 mg PO QDAY meloxicam 15 mg tablet 15 mg PO DAILY prednisone 20 mg tablet 40 mg PO DAILY ondansetron 8 mg tablet,disintegrating 8 mg PO Q8H PRN (Reason: nausea and vomiting) Qty: 20 0RF oxycodone-acetaminophen 5-325 mg tablet 1 tab PO Q6H PRN PRN (Reason: Pain) 3 Days Qty: 12 0RF tamsulosin 0.4 MG capsule 0.4 mg PO DAILY multivitamin with folic acid 1 TABLET tablet 1 tab PO DAILY Primary Care Provider: Evan Douglas Referrals: Evan Douglas MD [Primary Care Provider] - Activity Restrictions/Additional Instructions: 1. Call oral surgeon's office and ask if they can call you if there is a cancellation. 2. Take medication as prescribed Print Language: [place] Disposition Disposition: Home, Self Care
== END 2024-03-12 15:18 | disposition home or self-care (01) ==
PROVIDERS: Emergency Provider Emergency Medicine; PCP Family Medicine; Visit Provider Emergency Medicine
DX: K01.1 Impacted teeth (principal); N40.0 Benign prostatic hyperplasia without lower urinary tract symptoms; G57.00 Lesion of sciatic nerve, unspecified lower limb; Z79.899 Other long term (current) drug therapy
CPT/HCPCS: 99283

== ENCOUNTER 2024-08-18 14:39 | Observation (INO) | payer MEDICARE, SELFPAY ==
--- NOTE | 2024-08-09 07:39 | EKG12_ITS ---
Test Reason : PREOP Blood Pressure : */* mmHG Vent. Rate : 44 BPM Atrial Rate : 44 BPM P-R Int : 168 ms QRS Dur : 98 ms QT Int : 512 ms P-R-T Axes : 25 86 77 degrees QTcB Int : 437 ms Marked sinus bradycardia Abnormal ECG Confirmed by Marco Campos ([id number]), non linear editor SHASHA ROWE ([id number]) on 08/10/2024 7:52:44 AM Referred By: Mello Hicks Confirmed By: Marco Campos
--- NOTE | 2024-08-09 15:04 | PAT.ANESEVAL ---
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 When Was Last Pacemaker Check QUESTION #4 FULL TEXT: You/Your Family Experience fever (hyperthermia) with Anesthesia Last Oral Intake Last Oral intake: Last Oral Intake NPO since Meds taken in AM with sips of water? Meds patient instructed to take am of surgery PONV PONV - regional dedicated truck driver: PONV - regional dedicated truck driver Female No 08/04/24 11:08 HX of Motion Sickness No 08/04/24 11:08 HX of N/V After Surgery No 08/04/24 11:08 Non-Smoker Yes 08/04/24 11:08 Duration of Surgery greater Yes 08/04/24 11:08 than 60 minutes Number of Risk Factors 2 08/04/24 11:08 PONV Score Moderate Risk 08/04/24 11:08 Height & Weight Height & Weight: Anesthesia: Height & Weight Height 5 ft 11 in 03/12/24 14:42 Respiratory Assessment Respiratory Assessment - regional dedicated truck driver: Respiratory Tract Infection Hx - regional dedicated truck driver Hx Respiratory Tract Infection No 08/04/24 11:08 STOP Sleep Apnea STOP Sleep Apnea - regional dedicated truck driver: STOP Sleep Apnea - regional dedicated truck driver Hx Hypertension No 08/04/24 11:08 Hx Sleep Apnea No 08/04/24 11:08 CPAP No 06/11/17 08:53 BIPAP No 06/11/17 08:53 Do you snore loudly (louder No 08/04/24 11:08 than talking or can be heard Do you often feel tired/ No 08/04/24 11:08 fatigued/ sleepy during daytime? Has anyone observed you stop No 08/04/24 11:08 breathing during sleep? STOP Results Negative 08/04/24 11:08 QUESTION #5 FULL TEXT : Do you snore loudly (louder than talking or can be heard through closed doors)? Tobacco Use History Tobacco Use History - regional dedicated truck driver: Tobacco Use History - regional dedicated truck driver Tobacco Use Smoking Status Never smoker 08/04/24 11:08 Hx Tobacco Use No 08/04/24 11:08 Years Smoking Packs Smoked per Day Smoking Cessation Date was within the last 15 years Hx Smoking Cessation Date Hx Smoking Cessation Counseling Hematologic Medial History Hematologic Hx - regional dedicated truck driver: Hematologic Medical Hx - implementation consultant Hx of Blood Transfusion No 08/04/24 11:08 Hx of Transfusion in last 3 No 08/04/24 11:08 Months Date of Last Transfusion (if within last 3 months) Ever experience any problems No 08/04/24 11:08 with transfusion(s)? Specify any problems Hx of Preganancy in last 3 N/A 08/04/24 11:08 Months Nurse Filling Out Transfusion JZOLLINGE 08/04/24 11:08 & Questions: Date: 08/04/24 08/04/24 11:08 Time: 11:10 08/04/24 11:08 Patient unable to answer at this time (ie. confused, unrespo /Reproduction History /Reproductive History - regional dedicated truck driver: /Reproductive Hx- regional dedicated truck driver Hx Now No 08/04/24 11:08 Gestational Age (in weeks): EDC: Hx Hx Para Hx Section SAB No 08/04/24 11:08 PFSH Medical History (Updated 08/04/24 @ 11:08 by Snow Odom) Wears glasses Alcohol use Non-smoker Asthma Compression of sciatic nerve Right inguinal hernia BPH (benign prostatic hyperplasia) Home Medications ?Medication ?Instructions ?Recorded ?Last Taken ?Type multivitamin with folic acid 400 1 tab PO DAILY 09/12/14 Unknown History mcg tablet tamsulosin 0.4 mg capsule 0.4 mg PO DAILY URINE FLOW 09/12/14 Unknown History finasteride 5 mg tablet 5 mg PO QDAY 05/31/17 Unknown History Allergy/AdvReac Type Severity Reaction Status Date / Time No Known Allergies Allergy Verified 08/04/24 10:59 Family History Mother Cancer lymphoma Father Heart disease Surgical History (Updated 08/04/24 @ 11:24 by Snow Odom) History of wisdom tooth extraction Hx of colonoscopy Social History Smoking Status: Never smoker alcohol intake: current alcohol intake frequency: holidays/special occasions only Audit: Pertinent Findings Pertinent Findings EKG Perinent findings: 06/14/2017. Sinus bradycardia 49 bpm. Recommendation Anesthesia Recommendation Anesthesia recommendation: OPTIMIZED for anesthesia
[2024-08-18] VITALS (10 sets, daily range): BP systolic 105–124; BP diastolic 53–78; PULSE 48–66; RESP 14–18; TEMP 36.3–36.8; O2SAT 97–100; BMI 21.4
--- NOTE | 2024-08-18 10:32 | PRE.ANES_ITS ---
ASA Classification* ASA Classification ASA Classification: 3 Assessment & Plan Anesthesia* Anesthesia Assessment Anesthesia Assessment: Discussed sedation and/or anesthesia options, risks, benefits, and alternatives with patient/parents/legal guardian/POA. Questions invited. The patient/parents/legal guardian/POA seems to understand and agrees to proceed with anesthesia plan. Reviewed the physical assessment, medical history, allergy history and patient home medications list prior to surgery/procedure/anesthetic and documented any changes. Performed airway and anesthesia risk assessments. Anesthesia Type Anesthesia Type: General Anesthesia Focused Assessment* Airway Assessment Mouth opens: >3 cm Mallampati Score: II Focused Labs Anesthesia Preop lab: CBC WBC 3.6 K/mm3 (4.4-11.0) L 11/06/20 09:40 11/06/20 RBC 5.05 M/mm3 (4.6-6.2) 11/06/20 09:40 11/06/20 Hgb 14.5 g/dL (13.0-16.5) 11/06/20 09:40 11/06/20 Hct 44.9 % (40-54) 11/06/20 09:40 11/06/20 Plt Count 235 K/mm3 (150-450) 11/06/20 09:40 11/06/20 CHEMISTRY Potassium 3.7 mmol/L (3.5-5.1) 11/24/23 13:34 11/24/23 Sodium 141 mmol/L (136-145) 11/24/23 13:34 11/24/23 BUN 22 mg/dL (7-18) H 11/24/23 13:34 11/24/23 Creatinine 1.15 mg/dL (0.70-1.30) 11/24/23 13:34 11/24/23 Glucose 108 mg/dL (74-106) H 11/24/23 13:34 11/24/23 COAG Pre-Assessment Diagnosis/Proposed Procedure Planned Operative Procedure(s): Cysto,TUR,Prostate,[facility] Anesthesia History Anesthesia History - guide excursion: Anesthesia History - guide excursion Hx Hospitalization No 08/04/24 11:08 Any Problems With Anesthesia No 08/04/24 11:08 Cholinesterase deficiency No 08/04/24 11:08 You/Your Family Experience No 08/04/24 11:08 fever (hyperthermia) with Relationship Recent Exposure to Contagious No 06/15/17 08:06 Disease Does patient have nerve No 08/04/24 11:08 stimulator Patient instructed to have device shut off --Does patient have Pacemaker or ICD? When Was Last Pacemaker Check QUESTION #4 FULL TEXT: You/Your Family Experience fever (hyperthermia) with Anesthesia Last Oral Intake Last Oral intake: Last Oral Intake NPO since Meds taken in AM with sips of water? Meds patient instructed to take am of surgery PONV PONV - guide excursion: PONV - guide excursion Female No 08/04/24 11:08 HX of Motion Sickness No 08/04/24 11:08 HX of N/V After Surgery No 08/04/24 11:08 Non-Smoker Yes 08/04/24 11:08 Duration of Surgery greater Yes 08/04/24 11:08 than 60 minutes Number of Risk Factors 2 08/04/24 11:08 PONV Score Moderate Risk 08/04/24 11:08 Height & Weight Height & Weight: Anesthesia: Height & Weight Height 5 ft 11 in 08/17/24 09:37 Weight: 65.771 kg 08/17/24 09:37 Respiratory Assessment Respiratory Assessment - guide excursion: Respiratory Tract Infection Hx - guide excursion Hx Respiratory Tract Infection No 08/04/24 11:08 STOP Sleep Apnea STOP Sleep Apnea - guide excursion: STOP Sleep Apnea - guide excursion Hx Hypertension No 08/04/24 11:08 Hx Sleep Apnea No 08/04/24 11:08 CPAP No 06/11/17 08:53 BIPAP No 06/11/17 08:53 Do you snore loudly (louder No 08/04/24 11:08 than talking or can be heard Do you often feel tired/ No 08/04/24 11:08 fatigued/ sleepy during daytime? Has anyone observed you stop No 08/04/24 11:08 breathing during sleep? STOP Results Negative 08/04/24 11:08 QUESTION #5 FULL TEXT : Do you snore loudly (louder than talking or can be heard through closed doors)? Tobacco Use History Tobacco Use History - guide excursion: Tobacco Use History - guide excursion Tobacco Use Smoking Status Never smoker 08/04/24 11:08 Hx Tobacco Use No 08/04/24 11:08 Years Smoking Packs Smoked per Day Smoking Cessation Date was within the last 15 years Hx Smoking Cessation Date Hx Smoking Cessation Counseling Hematologic Medial History Hematologic Hx - guide excursion: Hematologic Medical Hx - hand grinder Hx of Blood Transfusion No 08/04/24 11:08 Hx of Transfusion in last 3 No 08/04/24 11:08 Months Date of Last Transfusion (if within last 3 months) Ever experience any problems No 08/04/24 11:08 with transfusion(s)? Specify any problems Hx of Preganancy in last 3 N/A 08/04/24 11:08 Months Nurse Filling Out Transfusion JZOLLINGE 08/04/24 11:08 & Questions: Date: 08/04/24 08/04/24 11:08 Time: 11:10 08/04/24 11:08 Patient unable to answer at this time (ie. confused, unrespo /Reproduction History /Reproductive History - guide excursion: /Reproductive Hx- guide excursion Hx Now No 08/04/24 11:08 Gestational Age (in weeks): EDC: Hx Hx Para Hx Section SAB No 08/04/24 11:08 Active Medications Active Medications: Current Medications Generic Name Dose Route Start Last Admin Trade Name Freq PRN Reason Stop Dose Admin Cefazolin Sodium 2 gm/ N/A 20 mls @ 400 mls/hr 08/18/24 13:30 IV 08/18/24 13:32 X1 ONE Sodium Chloride 1,000 mls @ 15 mls/hr 08/18/24 10:15 IV .Q48H NICOLA PFSH Medical History Wears glasses Alcohol use Non-smoker Asthma Compression of sciatic nerve Right inguinal hernia BPH (benign prostatic hyperplasia) Home Medications ?Medication ?Instructions ?Recorded ?Last Taken ?Type multivitamin with folic acid 400 1 tab PO DAILY Unknown History mcg tablet tamsulosin 0.4 mg capsule 0.4 mg PO DAILY URINE FLOW 0 09/12/14 Unknown History finasteride 5 mg tablet 5 mg PO QDAY 05/31/17 Unknow n History Allergy/AdvReac Type Severity Reaction Status Date / Time No Known Allergies Allergy Verified 08/18/24 10:26 Family History Mother Cancer lymphoma Father Heart disease Surgical History History of wisdom tooth extraction Hx of colonoscopy Social History Smoking Status: Never smoker alcohol intake: current alcohol intake frequency: holidays/special occasions only Review of Systems (Anesthesia) ROS Narrative System reviewed and no additional complaints, except as documented.
[2024-08-18] MEDS: 0.9% Normal Saline (1000mL) 1,000 ML 15 ML IV (10:35)
--- NOTE | 2024-08-18 10:36 | PCM.HP.STD ---
HPI - General General Date of Service: 08/18/24 Chief Complaint: BPH with obstruction HPI Narrative MARY LOU LONG, is a 74 M who presents for transurethral section of the prostate he has obstructive prostate and difficulty with urination PFS Medical History Wears glasses Alcohol use Non-smoker Asthma Compression of sciatic nerve Right inguinal hernia BPH (benign prostatic hyperplasia) Home Medications ?Medication ?Instructions ?Recorded ?Last Taken ?Type multivitamin with folic acid 400 1 tab PO DAILY 09/12/14 Unknown History mcg tablet tamsulosin 0.4 mg capsule 0.4 mg PO DAILY URINE FLOW 09/12/14 Unknown History finasteride 5 mg tablet 5 mg PO QDAY 05/31/17 Unknown History Allergy/AdvReac Type Severity Reaction Status Date / Time No Known Allergies Allergy Verified 08/18/24 10:26 Family History Mother Cancer lymphoma Father Heart disease Surgical History History of wisdom tooth extraction Hx of colonoscopy Social History Smoking Status: Never smoker alcohol intake: current alcohol intake frequency: holidays/special occasions only Vital Signs Vital Signs Vital Signs: 08/18/24 10:27 08/18/24 10:27 Temperature 97.8 F Temperature Source Temporal Pulse Rate 48 L Respiratory Rate 16 Respiratory Pattern Normal Blood Pressure 120/74 Blood Pressure Mean 89 Blood Pressure Source Monitor Blood Pressure Position Semi-Fowlers Blood Pressure Location Right Arm Pulse Ox 99 Oxygen Delivery Method Room Air Weight Weight: 69.853 kg Body Mass Index (BMI) 21.4
[2024-08-18] MEDS: Cefazolin 2 GM in Syringe IV (11:07)
--- NOTE | 2024-08-18 11:46 | DCINST_ITS ---
Discharge Instructions Diet Discharge Diet: No restrictions DC O2, CPAP, BIPAP needs Home O2 Discharge instructions: No Dressing / Incision Discharge Activity: Return to Normal Activity and May Not Drive (while taking narcotic pain medications.) Dressing / Incision Call your doctor if you observe: Fever of 101 or Higher Follow Up Care Please Follow Up With: Mello Hicks MD When: Call [phone] for an appointment Test Results: Test results from this visit will be discussed in further detail at your follow- up appointment, if applicable. Discharge Plan Admission Primary Reason for Your Visit: filemon Attending Provider: Mello Hicks Primary Care Provider: Evan Douglas Instructions Patient Instructions: FILEMON, FILEMON Home Recovery, [facility] Hospital Recovery Print Language: [place] Discharge Orders/Prescriptions Prescriptions: Continued multivitamin with folic acid 1 TABLET tablet 1 tab PO DAILY Discontinued finasteride 5 mg tablet 5 mg PO QDAY tamsulosin 0.4 MG capsule 0.4 mg PO DAILY Referrals / Follow Up: Mello Hicks MD [Med Staff - Active Staff] - Evan Douglas MD [Primary Care Provider] - Disposition Disposition (needs filled in before D/C Order can be placed): Home, Self Care
--- NOTE | 2024-08-18 11:46 | PCM.OPRPT ---
Operative Report (Standard) Operative Information Date of Procedure: 08/18/24 Pre-Operative Diagnosis: BPH with obstruction Post-Operative Diagnosis: The same Surgery/Procedure Performed: transurethral section of the prostate advanced practice registered nurse: No Type of Anesthesia: General RN Documented Start/Stop Times: Operation Date: 08/18/24 12:10 Case Time Into Pre-Op 08/18/24 10:13 Out of Pre-Op 08/18/24 10:55 Anesthesia Start 08/18/24 11:00 Into Room 08/18/24 11:00 Procedure Start 08/18/24 11:17 Procedure End 08/18/24 11:39 Procedure Start Time: 11:17 Procedure Stop Time: 11:46 Select all DRAINS/GRAFTS/IMPLANTS that apply: Drains Drain details: 22 Wolof three-way Delaney Estimated Blood Loss: 10 cc Specimen collected: Yes Description of specimen(s) removed: Prostate tissue Description of surgery: In the preoperative setting I discussed with the patient how the surgery would be done with expect afterwards. We discussed how a prostate resection is done and we discussed the risk of the surgery including, bleeding, infection, retrograde ejaculation, changes with ejaculation or intercourse,. We discussed the possibility that the resection of the prostate may not alleviate his urinary symptoms. We discussed the small risk of developing scar tissue along the urethral channel and strictures. We also discussed the chance of the prostate could grow back and he may need further surgery or treatment in the future for prostate problems. Patient was taken back to the operating room, timeout procedure was performed, he was identified and marked and placed on the operating room table. He underwent general anesthesia. He was placed in dorsolithotomy position. Penis and testicles were prepped and draped in usual sterile fashion. Went into the bladder using the visual obturator with a resectoscope. Once inside the bladder identified the right and left ureteral orifice. I then identified the prostate and the anatomy of the prostate. I marked out the area of the sphincter and the verumontanum was identified. I then proceeded with the prostate resection first resected the median lobe. And then resected the right lobe of the prostate. Then to resect the left lobe of the prostate. I then resected the apical tissue of the prostate. This was a complete resection of all obstructive tissue to improve voiding and relieve obstruction. I then made sure that there was no injury to the sphincter or the verumontanum was still intact. At the end of the resection all the chips were Ellik out of the bladder. I then identified the left and right ureteral orifice and these were confirmed to be in good position and effluxing and not injured. The resectoscope was removed, a 22 Wolof catheter was placed into the bladder on continuous irrigation. And the urine was fairly light pink color and draining normally. He was taken back to the PACU in good condition. Surgical Findings: Small but obstructive prostate resected wide open channel sphincter looked intact Complications Complications: No Admit VTE Documentation VTE Present on Admission: No VTE Mechan Device Prophylaxis: SCD's VTE Pharm Prophylaxis ordered?: No
--- NOTE | 2024-08-18 11:54 | PCM.POST.ANE ---
Anesthesia: Postop Eval I Current Vital Signs Temperature: 97.4 F Pulse Rate: 62 Blood Pressure: 115/78 Respiratory Rate: 16 Pulse Ox: 97 Oxygen Delivery Method: Room Air Assessment Airway patent: Yes Spontaneous unlabored respirations: Yes Mental status: Awake and Calm nausea: No Vomiting: No Anesthesia Complication: No Fluid Hydration Crystalloid volume administer (ml): 900 Total IV fluid infused: 900 Progress Note Anesthesia document: Postop Eval 1 completed: Yes
--- NOTE | 2024-08-18 12:05 | POSTOPAN2_ITS ---
Anesthesia Postop Eval I Sum Postop Eval Completion status Anesthesia document: Postop Eval 1 completed: Yes Anesthesia Postop Eval I Summary Anesthesia Postop Eval I Summary: Anesthesia Postop Eval I: Assessment Summary Airway patent Yes 08/18/24 11:55 STAFF SERVICES [email or web address] Spontaneous unlabored Yes 08/18/24 11:55 STAFF SERVICES [email or web address] respirations Mental status Awake,Calm 08/18/24 11:55 STAFF SERVICES [email or web address] nausea No 08/18/24 11:55 STAFF SERVICES [email or web address] Vomiting No 08/18/24 11:55 STAFF SERVICES [email or web address] Anesthesia Postop Eval I: Fluid Summary Crystalloid volume administer 900 08/18/24 11:55 STAFF SERVICES [email or web address] (ml) Colloids volume administered ( ml) Blood Product volume administered (ml) Total IV fluid infused 900 08/18/24 11:55 STAFF SERVICES [email or web address] Anesthesia Postop Eval I: Summary Notes Anesthesia Complication No 08/18/24 11:55 STAFF SERVICES [email or web address] Anesthesia Complication Comment: Post-operative progress note Anesthesia: Postop Eval II Evaluation Mental status: Awake Pain Level: 0 nausea: No Vomiting: No
--- NOTE | 2024-08-18 12:05 | PCM.POSTANE2 ---
Anesthesia Postop Eval I Sum Postop Eval Completion status Anesthesia document: Postop Eval 1 completed: Yes Anesthesia Postop Eval I Summary Anesthesia Postop Eval I Summary: Anesthesia Postop Eval I: Assessment Summary Airway patent Yes 08/18/24 11:55 [email or web address] [email or web address] Spontaneous unlabored Yes 08/18/24 11:55 SUPERINTENDENT [email or web address] respirations Mental status Awake,Calm 08/18/24 11:55 SUPERINTENDENT [email or web address] nausea No 08/18/24 11:55 SUPERINTENDENT [email or web address] Vomiting No 08/18/24 11:55 SUPERINTENDENT [email or web address] Anesthesia Postop Eval I: Fluid Summary Crystalloid volume administer 900 08/18/24 11:55 SUPERINTENDENT [email or web address] (ml) Colloids volume administered ( ml) Blood Product volume administered (ml) Total IV fluid infused 900 08/18/24 11:55 SUPERINTENDENT [email or web address] Anesthesia Postop Eval I: Summary Notes Anesthesia Complication No 08/18/24 11:55 SUPERINTENDENT [email or web address] Anesthesia Complication Comment: Post-operative progress note Anesthesia: Postop Eval II Evaluation Mental status: Awake Pain Level: 0 nausea: No Vomiting: No
--- NOTE | 2024-08-18 12:10 | PROS_PTH ---
PATIENT: MARY LOU LONG LOC: MS3 U#:[id number] AGE/SX: 74/M ROOM: OR318 RE08/18/[address]: Dr. Mello Hicks MD : 1950 BED: 1 DIS: 08/19/2024 SPEC #: [id number] RECD: 08/18/24 14:15 STATUS: DARRELL INIGUEZ #: [id number] LOU: 08/18/24 12:[address]: Mello Hicks DEPT: SURGICAL PATHOLOGY RECD BY: Jason Holland ENTERED: 08/18/24 14:15 SP TYPE: TURP OTHR DR: Dr. Evan Douglas MD Tissues: A - Prostate, NOS Procedures: Surgery Specimen Level IV HEADER OPERATION: Cystoscopy, transurethral resection of prostate PRE-OP DIAGNOSIS: Benign prostate hyperplasia without obstruction TISSUE SUBMITTED: A- Prostate tissue MICROSCOPIC DIAGNOSIS A. Prostate, benign prostatic hyperplasia, TURP: - Benign prostate tissue. MICROSCOPIC DESCRIPTION Slides are reviewed. GROSS DESCRIPTION A. Received in formalin in a container labeled with the patient's name, date of , and prostate tissue are multiple mcdowell-pink, rubbery, and irregular fragments of soft tissue measuring 3.8 x 3.5 x 1.5 cm in aggregate and 4.8 g together. Submitted in toto in A1-5. [facility] 08/23/2024 CPT:19569
[2024-08-18] MEDS: 0.9% Normal Saline (1000mL) 1,000 ML 75 ML IV (12:52)
[2024-08-18] MEDS: Acetaminophen 325 MG Tablet 650 MG PO (20:35)
[2024-08-18] MEDS: Ciprofloxacin 400 MG/200 ML BAG 200 MG IV (20:35)
[2024-08-18] MEDS: Docusate Sodium 100 MG Capsule 200 MG PO (20:35)
[2024-08-19] MEDS: Acetaminophen 325 MG Tablet 650 MG PO (02:07)
[2024-08-19] MEDS: 0.9% Normal Saline (1000mL) 1,000 ML 75 ML IV (02:07)
[2024-08-19 02:11] VITALS: BP 121/78; PULSE 55; RESP 16; TEMP 36.4; O2SAT 99
[2024-08-19 07:25] LABS: Absolute Lymphocyte Count 0.89 X10^3/uL (0.83-4.51); Basophil# 0.01 X10^3/uL; Basophil% 0.1 % (0-1); Eosinophil# 0.01 X10^3/uL; Eosinophils% 0.1 % (0-5); Hematocrit 37.2 % (40-54); Hemoglobin 12.4 g/dL (13.0-16.5); Lymphocyte # 0.89 X10^3/ul (0.83-4.51); Lymphocyte % 11.9 % (19-41); Mean Corp Hgb Conc 33.3 g/dL (32-36); Mean Corpuscular Hgb 28.9 pg (27.0-32.0); Mean Corpuscular Volume 86.7 fL (80-94); Mean Platelet Vol. 10.7 fl (6.2-12.0); Monocyte# 0.58 X10^3/uL; Monocyte% 7.7 % (0-10); NRBC Flagged by Analyzer 0 % (0-5); Neutrophil # 5.96 X10^3/uL (2.7-7.7); Neutrophil % 79.7 % (47-70); Platelet Count 209 K/mm3 (150-450); RBC Distribution Width CV 12.9 % (11.6-14.6); RBC Distribution Width SD 40.8 fl (35.1-43.9); Red Blood Count 4.29 M/mm3 (4.6-6.2); White Blood Count 7.5 K/mm3 (4.4-11.0)
[2024-08-19 07:48] LABS: Anion Gap 9 (5-15); BUN 16 mg/dL (4-19); BUN/Creat Ratio 16.9 RATIO (10-20); Calcium,Total 8.4 mg/dL (7.6-11.0); Carbon Dioxide 21.8 mmol/L (21.0-32.0); Chloride 105 mmol/L (98-108); Creatinine, Serum 0.93 mg/dL (0.70-1.20); EST Glomerular Filtration Rate 87 (>60); Estimated Creatinine Clearance 70.94 ml/min (50-250); Glucose 106 mg/dL (70-99); Potassium 4.2 mmol/L (3.3-5.1); Sodium Level 136 mmol/L (133-145)
[2024-08-19] MEDS: Docusate Sodium 100 MG Capsule 200 MG PO (08:17)
[2024-08-19] MEDS: Ciprofloxacin 400 MG/200 ML BAG 200 MG IV (08:18)
[2024-08-19] MEDS: Multivitamins,Therapeutic Tablet 1 TABLET PO (08:18)
--- NOTE | 2024-08-19 09:02 | PCM.PN.GU ---
Subjective Subjective s/p turp d/c [facility] after is able to void Objective Data Objective Data Vital Signs: Vital Signs Temp Pulse Resp BP Pulse Ox O2 Del Method 97.6 F L 55 L 16 121/78 H 99 Room Air 08/19/24 02:11 08/19/24 02:11 08/19/24 02:11 08/19/24 02:11 08/19/24 02:11 08/19/24 02:11 Oxygen Delivery Method Room Air Weight: 69.853 kg Body Mass Index (BMI) 21.4 Intake & Output: Intake and Output for Last 24 Hours 08/17/24 08/18/24 08/19/24 23:59 23:59 23:59 Intake Total 1626.75 / 1626.75 806.25 / 806.25 Output Total 700 / 700 1700 / 1700 Balance 926.75 / 926.75 -893.75 / -893.75 Lab / Micro Data 08/19/24 06:09 08/19/24 06:09 Labs: Laboratory Results - last 24 hr 08/19/24 06:09: WBC 7.5, RBC 4.29 L, Hgb 12.4 L, Hct 37.2 L, MCV 86.7, MCH 28.9, MCHC 33.3, RDW Std Deviation 40.8, RDW Coeff of Milad 12.9, Plt Count 209, MPV 10.7, Immature Gran % (Auto) 0.500, Neut % (Auto) 79.7 H, Lymph % (Auto) 11.9 L, [place] % (Auto) 7.7, Eos % (Auto) 0.1, Baso % (Auto) 0.1, Absolute Neuts (auto) 6.0, Absolute Lymphs (auto) 0.89, Nucleated RBC % 0, Sodium 136, Potassium 4.2, Chloride 105, Carbon Dioxide 21.8, Anion Gap 9, BUN 16, Creatinine 0.93, Estim Creat Clear Calc 70.94, Est GFR (MDRD) Non-Af 87, BUN/Creatinine Ratio 16.9, Glucose 106 H, Calcium 8.4
[2024-08-19 09:26] VITALS: BP 118/76; PULSE 59; RESP 16; TEMP 36.4; O2SAT 100
[2024-08-19 11:30] VITALS: BP 160/42; PULSE 59; RESP 16; TEMP 36.6; O2SAT 100
== END 2024-08-19 14:31 | disposition home or self-care (01) ==
LOC: SDC 15:36 → MS3 18:47
PROVIDERS: Admitting Provider Urology; PCP Family Medicine; Referring Provider Urology; Visit Provider Urology
PROC: (CPT 52601; principal; 2024-08-18 12:00)
DX: N40.1 Benign prostatic hyperplasia with lower urinary tract symptoms (principal); N13.8 Other obstructive and reflux uropathy; R35.1 Nocturia; R39.12 Poor urinary stream; R39.14 Feeling of incomplete bladder emptying; R35.0 Frequency of micturition; N32.89 Other specified disorders of bladder; J45.20 Mild intermittent asthma, uncomplicated; Z79.899 Other long term (current) drug therapy
CPT/HCPCS: 52601; 00914; 88305; 93005; 94668; 96361; 96365; 96366; 99221; G0378; J0744; J2405

== ENCOUNTER 2024-08-20 23:08 | Observation (INO) | payer MEDICARE, SELFPAY ==
[2024-08-20 23:09] VITALS: BP 159/89; PULSE 68; RESP 18; TEMP 36.9; O2SAT 98; BMI 22.4
--- NOTE | 2024-08-20 23:24 | CT_ITS ---
PROCEDURE: ABDOMEN/PELVIS W IV CONT ONLY 08/20/2024 REASON FOR EXAM: RECENT TURP, URINARY RETENTION AND HEMATURIA TECHNIQUE: Abdomen and pelvis CT with intravenous contrast. Coronal and Sagittal reconstruction series were provided. PATIENT PREPARATION: Per protocol ORAL CONTRAST TYPE: None. CONTRAST: 100 cc Isovue 370 IV One or more dose reduction techniques were used (e.g., Automated exposure control, adjustment of the mA and/or kV according to patient size, use of iterative reconstruction technique. RADIATION DOSE SUMMARY: CTDlvol: 13.30 mGy DLP: 609.37 mGycm COMPARISON: None available FINDINGS: The lung bases are clear. Suggestion of possible mild hepatic steatosis. A few small low-density liver foci may represent hepatic cysts. Posterior subcapsular focus measuring around 3.8 cm may represent hepatic cyst. The adrenal glands, gallbladder, pancreas and spleen appear within limits. The kidneys appear within limits. Symmetric nephrograms without hydronephrosis. No bowel dilation or free air. The appendix is not definitely identified. Undulating abdominal aorta and iliac arteries without aneurysm. No adenopathy identified. Delaney catheter within a mostly collapsed. Small amount of curvilinear mildly high dense material within the base of the bladder for example axial 94 and coronal 78 may represent hemorrhage/blood products. Prostate appears unremarkable. There is bilateral knpvyyja-yw-srnwy amount of ikmuw-sbqohod-ifkn-left anterior pararenal space retroperitoneal edema, fluid mainly perinephric extending to the right lower quadrant with small amount at the right upper quadrant adjacent to the duodenum. No peritoneal or pelvic free fluid. Lower lumbar spondylosis/discogenic change. Mild rightward curvature, CT/Abdomen/Pelvis W IV Cont ONLY IMPRESSION: Delaney catheter within a mostly collapsed. Small amount of curvilinear mildly hi gh dense material within the base of the bladder for example axial 94 and coronal 78 may represent hemorrhage/blood products. There is bilateral bevwtukg-zb-khkrq amount of bxics-fexatte-bvim-left anterior pararenal space retroperitoneal edema, fluid mainly perinephric extending to the right lower quadrant with small amount at t he right upper quadrant adjacent to the duodenum. No peritoneal or pelvic free fluid. Exact etiology is unclear and can not excl ude possibility of reactive/inflammatory change or possibility of forniceal rupture in the setting of a bladder outlet obstruction , clinically correlate. The kidneys appear within limits. Symmetric nephrograms without hydronephrosis. Reading Location: [id number]
--- NOTE | 2024-08-20 23:34 | EX.ED.DYSGE1 ---
HPI History of Present Illness Chief Complaint: Complaint Narrative Narrative: Chief complaint and HPI: Urinary retention and hematuria. History taken by medical record as well as patient. On 08/18/2024 patient had transurethral section of the prostate due to BPH with obstruction. Patient had 22 [place] Delaney catheter placed after the surgery. Spent 1 day in the hospital and then discharged home. Patient states that he has had decreased urination since discharge. He states this worsened this evening and now he is unable to urinate. He endorses gross hematuria with blood clots. He denies any fever, chills, nausea, vomiting. Endorses suprapubic abdominal pain. Review of systems: See HPI Medications: As listed on the chart Allergies: As listed on the chart PFSH: Per chart Vital signs: As listed on the chart. Reviewed. Physical exam: Gen: A&O x3, NAD Head: Normocephalic, atraumatic Eyes: No sclera icterus, conjunctiva clear ENT: Moist mucous membranes Neck: Trachea midline, No JVD CV: RRR, no murmurs, no peripheral edema Resp: Lungs CTA BL, no w/r/c GI: Abd soft, distended suprapubically likely secondary to bladder-tender to palpation, no rebound or rigidity : No CVA tenderness. Circumcised penis. No penile tenderness or discharge. No penile or testicular swelling. Normal lie and position of the testicles. No testicular tenderness, masses, or skin changes. Cremasteric reflexes intact and equal bilaterally. No rashes. Blood in his underwear but currently none at the urethral meatus Musc: Full ROM, no deformity Skin: Warm, dry Neuro: Alert, oriented, grossly intact, sensation intact Psych: Cooperative, appropriate mood and affect [facility] Medical History Wears glasses Alcohol use Non-smoker Asthma Compression of sciatic nerve Right inguinal hernia BPH (benign prostatic hyperplasia) Home Medications ?Medication ?Instructions ?Recorded ?Last Taken ?Type multivitamin with folic acid 400 1 tab PO DAILY 09/12/14 Unknown History mcg tablet Allergy/AdvReac Type Severity Reaction Status Date / Time No Known Allergies Allergy Verified 08/20/24 23:09 Family History Mother Cancer lymphoma Father Heart disease Surgical History History of wisdom tooth extraction Hx of colonoscopy Social History Smoking Status: Never smoker alcohol intake: current alcohol intake frequency: holidays/special occasions only EXAM Physical Exam Const Vital Signs: 08/20/24 23:09 Temperature 98.4 F Temperature Source Oral Pulse Rate 68 Respiratory Rate 18 Blood Pressure 159/89 H Blood Pressure Mean 112 Pulse Ox 98 Oxygen Delivery Method Room Air MDM MDM MDM Narrative Medical decision making narrative: 74-year-old male presents for evaluation of urinary retention and hematuria. On 08/18/2024 patient had transurethral section of the prostate due to BPH with obstruction with urology. This evening he developed gross hematuria, blood clots, urinary retention. Bladder scan 469. Differential diagnosis includes but is not limited to urinary retention, hematuria, WEI, electrolyte abnormality, UTI, pyelonephritis, abscess. NS bolus and three-way Delaney catheter ordered in case irrigation is needed. Laboratory workup ordered including CT abdomen pelvis. CBC without leukocytosis. Patient has baseline anemia with a hemoglobin of 12.4. BMP unremarkable without WEI. Lactic acid unremarkable. UA positive for UTI. Urine culture obtained. Rocephin ordered. On chart review do not have previous cultures to compare to. CT abdomen pelvis shows correct Delaney catheter placement. There is a small amount of curvilinear mildly high dense material within the base of the bladder represents hemorrhage/blood products. This is consistent with patient's hematuria. There is bilateral moderate to large amount of right greater than left anterior pararenal space retroperitoneal edema, fluid mainly para nephrotic extending to the right lower quadrant with small amount of the right upper quadrant adjacent to the duodenum. No peritoneal or pelvic free fluid. Possibly reactive/inflammatory change or possibility of forniceal rupture. On reevaluation, patient's pain has improved. His urine was originally grossly bloody however it has cleared up significantly. He has been about 1.2 L out. Given patient just had recent surgery, Dr. Hicks was consulted. Plan is for admission under urology service. Despite improvement in color of urine, recommended continuous bladder irrigation. This was ordered. Patient was updated of all results and confirmed understanding of the plan. Patient will be admitted. Impression: 1. Hematuria causing urinary retention 2. History of TURP on 08/18 Lab Data Labs: Laboratory Results - last 24 hr 08/20/24 23:45 WBC 6.2 RBC 4.29 L Hgb 12.4 L Hct 36.4 L MCV 84.8 MCH 28.9 MCHC 34.1 RDW Std Deviation 38.7 RDW Coeff of Milad 12.6 Plt Count 214 MPV 10.7 Immature Gran % (Auto) 0.300 Neut % (Auto) 71.5 H Lymph % (Auto) 15.8 L [place] % (Auto) 11.4 H Eos % (Auto) 0.8 Baso % (Auto) 0.2 Absolute Neuts (auto) 4.4 Absolute Lymphs (auto) 0.98 Nucleated RBC % 0 Sodium 135 Potassium 3.8 Chloride 102 Carbon Dioxide 21.3 Anion Gap 12 BUN 13 Creatinine 1.03 Estim Creat Clear Calc 66.75 Est GFR (MDRD) Non-Af 77 BUN/Creatinine Ratio 12.5 Glucose 115 H Lactic Acid 1.2 Calcium 9.2 Urine Color Red Urine Clarity Sl Cldy Urine pH 7.0 Ur Specific [place] 1.005 Urine Protein 100 H Urine Glucose (UA) NEGATIVE Urine Ketones 5 H Urine Occult Blood 250 H Urine Nitrite Positive H Urine Bilirubin Negative Urine Urobilinogen 1 H Ur Leukocyte Esterase 500 H Urine RBC 50-100 SEEN Urine WBC 10-25 SEEN Ur Squamous Epith Cells 0-5 SEEN Ur Transition Epith Cell 0-5 SEEN Urine Bacteria 2+ Urine Mucus 1+ Radiography Diagnostic Testing: Clinical Impression(s) from Imaging Studies Abdomen/Pelvis CT 08/20/24 23:24 IMPRESSION: Delaney catheter within a mostly collapsed. Small amount of curvilinear mildly high dense material within the base of the bladder for example axial 94 and coronal 78 may represent hemorrhage/blood products. There is bilateral twharpkq-ch-uwnoe amount of jkjer-adazgni-jpgw-left anterior pararenal space retroperitoneal edema, fluid mainly perinephric extending to the right lower quadrant with small amount at the right upper quadrant adjacent to the duodenum. No peritoneal or pelvic free fluid. Exact etiology is unclear and can not exclude possibility of reactive/inflammatory change or possibility of forniceal rupture in the setting of a bladder outlet obstruction, clinically correlate. The kidneys appear within limits. Symmetric nephrograms without hydronephrosis. Reading Location: [facility] Discharge Plan Triage Chief Complaint: Complaint ED Provider: Gavino Srivastava Dx/Rx/DC Orders Prescriptions: No Action multivitamin with folic acid 1 TABLET tablet 1 tab PO DAILY Primary Care Provider: Evan Douglas Print Language: Gambian Disposition Disposition: Home, Self Care
[2024-08-20] MEDS: 0.9% Normal Saline (1000mL) 1,000 ML 999 ML IV (23:43)
[2024-08-21] VITALS (7 sets, daily range): BP systolic 109–123; BP diastolic 71–79; PULSE 59–65; RESP 14–15; TEMP 36.4–36.8; O2SAT 97–98; BMI 21.7
[2024-08-21 00:12] LABS: Anion Gap 12 (5-15); BUN 13 mg/dL (4-19); BUN/Creat Ratio 12.5 RATIO (10-20); Calcium,Total 9.2 mg/dL (7.6-11.0); Carbon Dioxide 21.3 mmol/L (21.0-32.0); Chloride 102 mmol/L (98-108); Creatinine, Serum 1.03 mg/dL (0.70-1.20); EST Glomerular Filtration Rate 77 (>60); Estimated Creatinine Clearance 66.75 ml/min (50-250); Glucose 115 mg/dL (70-99); Lactic Acid 1.2 mmol/L (0.0-2.0); Potassium 3.8 mmol/L (3.3-5.1); Sodium Level 135 mmol/L (133-145)
[2024-08-21 00:16] LABS: Color, Urine Red (Yellow); Glucose, Dipstick NEGATIVE (Normal); Urine Bilirubin Dipstick Negative (Negative); Urine Clarity Sl Cldy (Clear)
[2024-08-21 00:17] LABS: Ketone-Dipstick 5 mg/dl (Negative); Leukocyte Esterase-Dipstick 500 /ul (Negative); Nitrite-Dipstick Positive (Negative); Occult Blood-Urine 250 /ul (Negative); Protein-Dipstick 100 mg/dl (Negative); Specific Gravity, Urine 1.005 (1.002-1.030); Urine Urobilinogen 1 mg/dl (Normal)
[2024-08-21 00:19] LABS: Bacteria 2+ /hpf (None Seen); Mucous, Urine 1+ /hpf (<or=2+); Red Blood Cells-Urine 50-100 SEEN /hpf (0-5); Squamous Epithelial Cells - UA 0-5 SEEN /hpf (0-5); Transitional Epithelial - Ur 0-5 SEEN /hpf (0-5); White Blood Cells 10-25 SEEN /hpf (0-5)
[2024-08-21 00:23] LABS: Absolute Lymphocyte Count 0.98 X10^3/uL (0.83-4.51); Absolute Neutrophil Count 4.4 X10^3/uL (2.0-7.7); Basophil# 0.01 X10^3/uL; Basophil% 0.2 % (0-1); Eosinophil# 0.05 X10^3/uL; Eosinophils% 0.8 % (0-5); Hematocrit 36.4 % (40-54); Hemoglobin 12.4 g/dL (13.0-16.5); Lymphocyte # 0.98 X10^3/ul (0.83-4.51); Lymphocyte % 15.8 % (19-41); Mean Corp Hgb Conc 34.1 g/dL (32-36); Mean Corpuscular Hgb 28.9 pg (27.0-32.0); Mean Corpuscular Volume 84.8 fL (80-94); Mean Platelet Vol. 10.7 fl (6.2-12.0); Monocyte# 0.71 X10^3/uL; Monocyte% 11.4 % (0-10); NRBC Flagged by Analyzer 0 % (0-5); Neutrophil # 4.44 X10^3/uL (2.7-7.7); Neutrophil % 71.5 % (47-70); Platelet Count 214 K/mm3 (150-450); RBC Distribution Width CV 12.6 % (11.6-14.6); RBC Distribution Width SD 38.7 fl (35.1-43.9); Red Blood Count 4.29 M/mm3 (4.6-6.2); White Blood Count 6.2 K/mm3 (4.4-11.0)
[2024-08-21] MEDS: Ceftriaxone 1 GM/50 ML BAG IV (00:27)
--- NOTE | 2024-08-21 00:51 | PCM.HP.STD ---
HPI - General General Date of Admission: 08/21/24 HPI Narrative ANDREW LONG, is a 74 M who presents to ER with hemorrage and retention of urine after turp admit for irrigation. [facility] Medical History Wears glasses Alcohol use Non-smoker Asthma Compression of sciatic nerve Right inguinal hernia BPH (benign prostatic hyperplasia) Home Medications ?Medication ?Instructions ?Recorded ?Last Taken ?Type multivitamin with folic acid 400 1 tab PO DAILY 09/12/14 Unknown History mcg tablet Allergy/AdvReac Type Severity Reaction Status Date / Time No Known Allergies Allergy Verified 08/20/24 23:09 Family History Mother Cancer lymphoma Father Heart disease Surgical History History of wisdom tooth extraction Hx of colonoscopy Social History Smoking Status: Never smoker alcohol intake: current alcohol intake frequency: holidays/special occasions only Vital Signs Vital Signs Vital Signs: 08/20/24 23:09 Temperature 98.4 F Temperature Source Oral Pulse Rate 68 Respiratory Rate 18 Blood Pressure 159/89 H Blood Pressure Mean 112 Pulse Ox 98 Oxygen Delivery Method Room Air Weight Weight: 72.8 kg Body Mass Index (BMI) 22.4 Results Lab / Micro Data 08/20/24 23:45 08/20/24 23:45 Labs: Laboratory Results - last 24 hr 08/20/24 23:45: WBC 6.2, RBC 4.29 L, Hgb 12.4 L, Hct 36.4 L, MCV 84.8, MCH 28.9, MCHC 34.1, RDW Std Deviation 38.7, RDW Coeff of Milad 12.6, Plt Count 214, MPV 10.7, Immature Gran % (Auto) 0.300, Neut % (Auto) 71.5 H, Lymph % (Auto) 15.8 L, [place] % (Auto) 11.4 H, Eos % (Auto) 0.8, Baso % (Auto) 0.2, Absolute Neuts (auto) 4.4, Absolute Lymphs (auto) 0.98, Nucleated RBC % 0, Sodium 135, Potassium 3.8, Chloride 102, Carbon Dioxide 21.3, Anion Gap 12, BUN 13, Creatinine 1.03, Estim Creat Clear Calc 66.75, Est GFR (MDRD) Non-Af 77, BUN/Creatinine Ratio 12.5, Glucose 115 H, Lactic Acid 1.2, Calcium 9.2, Urine Color Red, Urine Clarity Sl Cldy, Urine pH 7.0, Ur Specific [place] 1.005, Urine Protein 100 H, Urine Glucose (UA) NEGATIVE, Urine Ketones 5 H, Urine Occult Blood 250 H, Urine Nitrite Positive H, Urine Bilirubin Negative, Urine Urobilinogen 1 H, Ur Leukocyte Esterase 500 H, Urine RBC 50-100 SEEN, Urine WBC 10-25 SEEN, Ur Squamous Epith Cells 0-5 SEEN, Ur Transition Epith Cell 0-5 SEEN, Urine Bacteria 2+, Urine Mucus 1+ Imaging Radiology Impression Abdomen/Pelvis CT 08/20/24 23:24 IMPRESSION: Delaney catheter within a mostly collapsed. Small amount of curvilinear mildly high dense material within the base of the bladder for example axial 94 and coronal 78 may represent hemorrhage/blood products. There is bilateral wtoksegm-xo-ckuni amount of vuiiw-sujxhbm-ksqa-left anterior pararenal space retroperitoneal edema, fluid mainly perinephric extending to the right lower quadrant with small amount at the right upper quadrant adjacent to the duodenum. No peritoneal or pelvic free fluid. Exact etiology is unclear and can not exclude possibility of reactive/inflammatory change or possibility of forniceal rupture in the setting of a bladder outlet obstruction, clinically correlate. The kidneys appear within limits. Symmetric nephrograms without hydronephrosis. Reading Location: [id number]
[2024-08-21] MEDS: Acetaminophen 325 MG Tablet 650 MG PO (02:07)
[2024-08-21] MEDS: 0.9% Normal Saline (1000mL) 1,000 ML 125 ML IV ×2 (02:07→10:05)
[2024-08-21] MEDS: Cefazolin 1 GM/50 ML BAG IV ×2 (06:21→13:10)
[2024-08-21 06:39] LABS: Absolute Lymphocyte Count 0.98 X10^3/uL (0.83-4.51); Absolute Neutrophil Count 4.5 X10^3/uL (2.0-7.7); Basophil# 0.02 X10^3/uL; Basophil% 0.3 % (0-1); Eosinophil# 0.06 X10^3/uL; Eosinophils% 0.9 % (0-5); Hematocrit 34.4 % (40-54); Hemoglobin 11.7 g/dL (13.0-16.5); Lymphocyte # 0.98 X10^3/ul (0.83-4.51); Lymphocyte % 15.5 % (19-41); Mean Corpuscular Hgb 28.9 pg (27.0-32.0); Mean Corpuscular Volume 84.9 fL (80-94); Mean Platelet Vol. 10.6 fl (6.2-12.0); Monocyte# 0.78 X10^3/uL; Monocyte% 12.3 % (0-10); NRBC Flagged by Analyzer 0 % (0-5); Neutrophil # 4.48 X10^3/uL (2.7-7.7); Neutrophil % 70.7 % (47-70); Platelet Count 202 K/mm3 (150-450); RBC Distribution Width CV 12.5 % (11.6-14.6); RBC Distribution Width SD 38.5 fl (35.1-43.9); Red Blood Count 4.05 M/mm3 (4.6-6.2); White Blood Count 6.3 K/mm3 (4.4-11.0)
[2024-08-21 07:02] LABS: Anion Gap 8 (5-15); BUN 10 mg/dL (4-19); BUN/Creat Ratio 11.6 RATIO (10-20); Calcium,Total 8.4 mg/dL (7.6-11.0); Carbon Dioxide 23.7 mmol/L (21.0-32.0); Chloride 108 mmol/L (98-108); Creatinine, Serum 0.89 mg/dL (0.70-1.20); EST Glomerular Filtration Rate 91 (>60); Estimated Creatinine Clearance 74.82 ml/min (50-250); Glucose 93 mg/dL (70-99); Potassium 3.8 mmol/L (3.3-5.1); Sodium Level 139 mmol/L (133-145)
[2024-08-21] MEDS: Docusate Sodium 100 MG Capsule 200 MG PO (10:05)
--- NOTE | 2024-08-21 16:32 | PCM.PN.GU ---
Subjective Subjective urine completely clear off irrigation home today w murphy follow up in my office to d/c murphy in a few days Objective Data Objective Data Vital Signs: Vital Signs Temp Pulse Resp BP Pulse Ox O2 Del Method 98.1 F 61 14 121/74 H 98 Room Air 08/21/24 16:00 08/21/24 16:00 08/21/24 16:00 08/21/24 16:00 08/21/24 16:00 08/21/24 16:00 Oxygen Delivery Method Room Air Weight: 70.503 kg Body Mass Index (BMI) 21.7 Intake & Output: Intake and Output for Last 24 Hours 08/19/24 08/20/24 08/21/24 23:59 23:59 23:59 Intake Total 2445.83 / 2445.83 Output Total 1700 / 1700 Balance 745.83 / 745.83 Lab / Micro Data 08/21/24 06:16 08/21/24 06:16 Labs: Laboratory Results - last 24 hr 08/20/24 23:45: WBC 6.2, RBC 4.29 L, Hgb 12.4 L, Hct 36.4 L, MCV 84.8, MCH 28.9, MCHC 34.1, RDW Std Deviation 38.7, RDW Coeff of Milad 12.6, Plt Count 214, MPV 10.7, Immature Gran % (Auto) 0.300, Neut % (Auto) 71.5 H, Lymph % (Auto) 15.8 L, [place] % (Auto) 11.4 H, Eos % (Auto) 0.8, Baso % (Auto) 0.2, Absolute Neuts (auto) 4.4, Absolute Lymphs (auto) 0.98, Nucleated RBC % 0, Sodium 135, Potassium 3.8, Chloride 102, Carbon Dioxide 21.3, Anion Gap 12, BUN 13, Creatinine 1.03, Estim Creat Clear Calc 66.75, Est GFR (MDRD) Non-Af 77, BUN/Creatinine Ratio 12.5, Glucose 115 H, Lactic Acid 1.2, Calcium 9.2, Urine Color Red, Urine Clarity Sl Cldy, Urine pH 7.0, Ur Specific [place] 1.005, Urine Protein 100 H, Urine Glucose (UA) NEGATIVE, Urine Ketones 5 H, Urine Occult Blood 250 H, Urine Nitrite Positive H, Urine Bilirubin Negative, Urine Urobilinogen 1 H, Ur Leukocyte Esterase 500 H, Urine RBC 50-100 SEEN, Urine WBC 10-25 SEEN, Ur Squamous Epith Cells 0-5 SEEN, Ur Transition Epith Cell 0-5 SEEN, Urine Bacteria 2+, Urine Mucus 1+ 08/21/24 06:16: WBC 6.3, RBC 4.05 L, Hgb 11.7 L, Hct 34.4 L, MCV 84.9, MCH 28.9, MCHC 34.0, RDW Std Deviation 38.5, RDW Coeff of Milad 12.5, Plt Count 202, MPV 10.6, Immature Gran % (Auto) 0.300, Neut % (Auto) 70.7 H, Lymph % (Auto) 15.5 L, [place] % (Auto) 12.3 H, Eos % (Auto) 0.9, Baso % (Auto) 0.3, Absolute Neuts (auto) 4.5, Absolute Lymphs (auto) 0.98, Nucleated RBC % 0, Sodium 139, Potassium 3.8, Chloride 108, Carbon Dioxide 23.7, Anion Gap 8, BUN 10, Creatinine 0.89, Estim Creat Clear Calc 74.82, Est GFR (MDRD) Non-Af 91, BUN/Creatinine Ratio 11.6, Glucose 93, Calcium 8.4 Radiography Diagnostic Testing: Radiology Impression Abdomen/Pelvis CT 08/20/24 23:24 IMPRESSION: Delaney catheter within a mostly collapsed. Small amount of curvilinear mildly high dense material within the base of the bladder for example axial 94 and coronal 78 may represent hemorrhage/blood products. There is bilateral wxvvtrio-sn-uribs amount of ebjhf-lbfbpub-vfjz-left anterior pararenal space retroperitoneal edema, fluid mainly perinephric extending to the right lower quadrant with small amount at the right upper quadrant adjacent to the duodenum. No peritoneal or pelvic free fluid. Exact etiology is unclear and can not exclude possibility of reactive/inflammatory change or possibility of forniceal rupture in the setting of a bladder outlet obstruction, clinically correlate. The kidneys appear within limits. Symmetric nephrograms without hydronephrosis. Reading Location: [id number]
== END 2024-08-21 17:30 | disposition home or self-care (01) ==
LOC: ED 08-21 00:40 → MS3 08-21 00:53
PROVIDERS: Admitting Provider Urology; Emergency Provider Surgery; PCP Family Medicine; Visit Provider Urology
DX: N99.820 Postprocedural hemorrhage of a genitourinary system organ or structure following a genitourinary system procedure (principal); N99.89 Other postprocedural complications and disorders of genitourinary system; Y83.6 Removal of other organ (partial) (total) as the cause of abnormal reaction of the patient, or of later complication, without mention of misadventure at the time of the procedure; Z90.79 Acquired absence of other genital organ(s)
CPT/HCPCS: 51700; 36415; 51702; 74177; 80048; 81001; 83605; 85025; 87086; 96361; 96365; 96366; 99221; 99285; Q9967; A4216; G0378

== ENCOUNTER → 2024-12-22 | Outpatient (CLI) | payer MEDICARE, SELFPAY ==
[2024-12-22 13:33] LABS: AST(SGOT) 23 U/L (<=37); Alanine Aminotransfer ALT/SGPT 16 U/L (<=46); Albumin, Serum 4.2 g/dL (3.4-4.8); Alkaline Phosphatase 93 U/L (40-129); Anion Gap 10 (5-15); BUN 19 mg/dL (4-19); BUN/Creat Ratio 19.7 RATIO (10-20); Calcium,Total 9.1 mg/dL (7.6-11.0); Carbon Dioxide 25.7 mmol/L (21.0-32.0); Chloride 104 mmol/L (98-108); Globulin 2.4 g/dL (2.2-4.2); Glucose 111 mg/dL (70-99); PSA,Total - Annual Screen 0.83 ng/mL (0.02-4.00); Potassium 3.9 mmol/L (3.3-5.1)
== END | disposition home or self-care (01) ==
LOC: MTLAB 09:33
PROVIDERS: PCP Family Medicine; Referring Provider Family Medicine; Visit Provider Family Medicine
DX: E55.9 Vitamin D deficiency, unspecified (principal); Z12.5 Encounter for screening for malignant neoplasm of prostate
CPT/HCPCS: 36415; 80053; 84153; G0103

== ENCOUNTER → 2025-03-29 | Outpatient (CLI) | payer MEDICARE, SELFPAY ==
[2025-03-29 11:03] LABS: PSA,Total- Diagnostic 0.91 ng/mL (0.00-4.00)
== END | disposition home or self-care (01) ==
LOC: LAB 09:12
PROVIDERS: PCP Family Medicine; Visit Provider Urology
DX: N40.1 Benign prostatic hyperplasia with lower urinary tract symptoms (principal)
CPT/HCPCS: 36415; 84153